=== PATIENT | male | born 1945 | race Caucasian/White ===

== ENCOUNTER → 2021-01-12 10:11 | Outpatient (CLI) | payer MEDICARE, SELFPAY ==
[2021-01-12 12:39] LABS: Anion Gap 4 (5-15); BUN 17 mg/dL (7-18); BUN/Creat Ratio 16.2 RATIO (10-20); Calcium,Total 9.7 mg/dL (8.5-10.1); Chloride 107 mmol/L (98-107); Cholesterol 131 mg/dL (200); Creatinine, Serum 1.05 mg/dL (0.70-1.30); EST Glomerular Filtration Rate 73 mL/min (>60); Est Glom Filt Rate - Afr Amer 89 mL/min (>60); Glucose 129 mg/dL (74-106); High Density Lipoprotein 45 mg/dL; Potassium 3.7 mmol/L (3.5-5.1); Sodium Level 140 mmol/L (136-145); Triglycerides 118 mg/dL; Very Low Density Lipoprotein 24 mg/dL (5-40)
== END ==
PROVIDERS: PCP Family Medicine; Referring Provider Family Medicine; Visit Provider Family Medicine
DX: E78.5 Hyperlipidemia, unspecified (principal)
CPT/HCPCS: 36415; 80048; 80061

== ENCOUNTER → 2021-01-13 12:38 | Outpatient (CLI) | payer MEDICARE, SELFPAY ==
[2021-01-13 15:41] LABS: Hemoglobin A1c 5.8 % (3.8-5.6)
== END ==
PROVIDERS: PCP Family Medicine; Referring Provider Family Medicine; Visit Provider Family Medicine
DX: R73.01 Impaired fasting glucose (principal)
CPT/HCPCS: 36415; 83036

== ENCOUNTER 2021-07-18 11:28 | Outpatient (CLI) | payer MEDICARE, SELFPAY ==
[2021-07-18 15:55] LABS: ALB/GLOB Ratio 1.1 RATIO (0.9-2.4); AST(SGOT) 16 U/L (15-37); Alanine Aminotransfer ALT/SGPT 26 U/L (16-61); Alkaline Phosphatase 65 U/L (45-117); Anion Gap 5 (5-15); BUN 26 mg/dL (7-18); BUN/Creat Ratio 20.8 RATIO (10-20); Calcium,Total 9.8 mg/dL (8.5-10.1); Chloride 106 mmol/L (98-107); Cholesterol 120 mg/dL (200); Creatinine, Serum 1.25 mg/dL (0.70-1.30); EST Glomerular Filtration Rate 60 mL/min (>60); Est Glom Filt Rate - Afr Amer 72 mL/min (>60); Globulin 3.6 g/dL (2.2-4.2); Glucose 126 mg/dL (74-106); High Density Lipoprotein 45 mg/dL; PSA,Total - Annual Screen 1.85 ng/mL (0.00-4.00); Protein, Total 7.6 g/dL (6.4-8.2); Sodium Level 138 mmol/L (136-145); Triglycerides 105 mg/dL; Very Low Density Lipoprotein 21 mg/dL (5-40)
== END 2021-07-18 23:59 | disposition home or self-care (01) ==
LOC: MFPLAB 11:31
PROVIDERS: PCP Family Medicine; Visit Provider Family Medicine
DX: E78.5 Hyperlipidemia, unspecified (principal); Z12.5 Encounter for screening for malignant neoplasm of prostate
CPT/HCPCS: 36415; 80053; 80061; 84153; G0103

== ENCOUNTER 2021-07-28 12:01 | Outpatient (CLI) | payer MEDICARE, SELFPAY ==
[2021-07-28 15:59] LABS: Hemoglobin A1c 5.9 % (3.8-5.6)
== END 2021-07-28 23:59 | disposition home or self-care (01) ==
LOC: MFPLAB 12:04
PROVIDERS: PCP Family Medicine; Referring Provider Family Medicine; Visit Provider Family Medicine
DX: R73.01 Impaired fasting glucose (principal)
CPT/HCPCS: 36415; 83036

== ENCOUNTER → 2021-09-23 | Outpatient (CLI) | payer MEDICARE, SELFPAY ==
[2021-09-23 18:14] LABS: Anion Gap 6 (5-15); BUN 13 mg/dL (7-18); BUN/Creat Ratio 12.7 RATIO (10-20); Calcium,Total 9.4 mg/dL (8.5-10.1); Chloride 107 mmol/L (98-107); Creatinine, Serum 1.02 mg/dL (0.70-1.30); EST Glomerular Filtration Rate 76 mL/min (>60); Est Glom Filt Rate - Afr Amer 91 mL/min (>60); Glucose 81 mg/dL (74-106); Potassium 3.7 mmol/L (3.5-5.1); Sodium Level 139 mmol/L (136-145)
== END | disposition home or self-care (01) ==
LOC: MFPLAB 15:55
PROVIDERS: PCP Family Medicine; Visit Provider Family Medicine
DX: I10 Essential (primary) hypertension (principal)
CPT/HCPCS: 36415; 80048

== ENCOUNTER → 2022-04-11 | Outpatient (CLI) | payer MEDICARE, SELFPAY ==
[2022-04-11 13:23] LABS: Anion Gap 10 (5-15); BUN 18 mg/dL (7-18); BUN/Creat Ratio 17.1 RATIO (10-20); Calcium,Total 9.5 mg/dL (8.5-10.1); Chloride 104 mmol/L (98-107); Cholesterol 136 mg/dL (200); Creatinine, Serum 1.05 mg/dL (0.70-1.30); EST Glomerular Filtration Rate 73 mL/min (>60); Est Glom Filt Rate - Afr Amer 88 mL/min (>60); Glucose 109 mg/dL (74-106); High Density Lipoprotein 49 mg/dL; Potassium 3.9 mmol/L (3.5-5.1); Sodium Level 143 mmol/L (136-145); Triglycerides 112 mg/dL; Very Low Density Lipoprotein 22 mg/dL (5-40)
== END | disposition home or self-care (01) ==
LOC: MFPLAB 11:10
PROVIDERS: PCP Family Medicine; Referring Provider Family Medicine; Visit Provider Family Medicine
DX: I10 Essential (primary) hypertension (principal); E78.5 Hyperlipidemia, unspecified
CPT/HCPCS: 36415; 80048; 80061

== ENCOUNTER → 2022-06-02 | Outpatient (CLI) | payer MEDICARE, SELFPAY ==
--- NOTE | 2022-06-02 12:59 | ECHOD_ITS ---
Reason For Study: Re-Evaluate post PPM Procedure This was a 2D Doppler, Color Flow transthoracic echocardiogram. Exam performed in department. Left Ventricle Normal LV size. Mild concentric left ventricular hypertrophy. Left ventricular systolic function is normal. The estimated ejection fraction is 65 %. No regional wall motion abnormalities noted. Right Ventricle Normal RV size. ICD or pacer leads identified within the right ventricle. Normal systolic function. Atria Normal left atrium. Normal right atrium. Mitral Valve Normal mitral valve. Tricuspid Valve Normal tricuspid valve. Mild (1+) tricuspid valve insufficiency. Pulmonary artery systolic pressure is 30 mmHg. Aortic Valve Trisinus/trileaflet aortic valve. Mild focal aortic valve calcification. Pulmonic Valve Normal pulmonic valve. Great Vessels Normal aortic root. The pulmonary artery is normal size. Normal inferior vena cava. Pericardium/Pleural No pericardial effusion. MMode/2D Measurements & Calculations LVIDd: 4.1 cm IVSd: 1.3 cm Ao root diam: 2.3 cm LVIDs: 3.0 cm LVPWd: 1.2 cm RVDd: 4.0 cm FS: 25.9 % LAV(MOD-bp): 34.5 ml LA A4 area: 16.2 cm2 RA A4 area: 16.5 cm2 LAV(MOD-bp) Indexed: 19.0 ml/m2 LAV(MOD-sp2): 31.6 ml LAV(MOD-sp4): 38.1 ml Time Measurements MV dec time: 0.18 sec Doppler Measurements & Calculations MV E max joby: 51.8 cm/sec Lat Peak E' Joby: 7.5 cm/sec Med Peak E' Joby: 7.8 cm/sec MV A max joby: 81.0 cm/sec E/E' lat: 6.9 E/E' med: 6.7 MV E/A: 0.64 MV V2 max: 101.0 cm/sec MV dec slope: 291.6 cm/sec2 Ao V2 max: 130.0 cm/sec MV max P.1 mmHg Ao max P.8 mmHg MV V2 mean: 49.3 cm/sec Ao V2 mean: 91.7 cm/sec MV mean P.2 mmHg Ao mean P.8 mmHg MV V2 VTI: 22.6 cm Ao V2 VTI: 30.6 cm AV (velocity ratio): 0.68 LV V1 max: 90.2 cm/sec PA V2 max: 88.6 cm/sec TR max joby: 254.8 cm/sec LV V1 max P.3 mmHg TR max P.0 mmHg LV V1 mean P.2 mmHg LV V1 mean: 71.6 cm/sec LV V1 VTI: 20.9 cm ECHO/Echo Complete Interpretation Summary Normal LV size. Mild concentric left ventricular hypertrophy. Left ventricular systolic function is normal. The estimated ejection fraction is 65 %. Pulmonary artery systolic pressure is 30 mmHg. Ordering Physician: Rei Hoover Referring Physician: Rei Hoover Performed By: Pankaj Nuñez RCS
== END | disposition home or self-care (01) ==
PROVIDERS: PCP Family Medicine; Referring Provider Nurse Practitioner Family; Visit Provider Nurse Practitioner Family
DX: I44.2 Atrioventricular block, complete (principal); I27.21 Secondary pulmonary arterial hypertension
CPT/HCPCS: 93306

== ENCOUNTER → 2023-01-26 | Outpatient (CLI) | payer MEDICARE, SELFPAY ==
[2023-01-26 12:29] LABS: AST(SGOT) 20 U/L (15-37); Alanine Aminotransfer ALT/SGPT 12 U/L (16-61); Albumin, Serum 3.8 g/dL (3.2-5.0); Alkaline Phosphatase 82 U/L (45-117); Anion Gap 3 (5-15); BUN 16 mg/dL (7-18); BUN/Creat Ratio 15.8 RATIO (10-20); Calcium,Total 9.4 mg/dL (8.5-10.1); Chloride 108 mmol/L (98-107); Cholesterol 134 mg/dL (200); Creatinine, Serum 1.01 mg/dL (0.70-1.30); EST Glomerular Filtration Rate 76 mL/min (>60); Est Glom Filt Rate - Afr Amer 92 mL/min (>60); Globulin 3.8 g/dL (2.2-4.2); Glucose 113 mg/dL (74-106); High Density Lipoprotein 52 mg/dL; Potassium 3.6 mmol/L (3.5-5.1); Protein, Total 7.6 g/dL (6.4-8.2); Sodium Level 140 mmol/L (136-145); Triglycerides 89 mg/dL; Very Low Density Lipoprotein 18 mg/dL (5-40)
== END | disposition home or self-care (01) ==
LOC: MTLAB 11:17
PROVIDERS: PCP Family Medicine; Referring Provider Family Medicine; Visit Provider Family Medicine
DX: E78.5 Hyperlipidemia, unspecified (principal)
CPT/HCPCS: 36415; 80053; 80061

== ENCOUNTER → 2023-07-18 | Outpatient (CLI) | payer MEDICARE, SELFPAY ==
[2023-07-18 18:32] LABS: Anion Gap 6 (5-15); BUN 14 mg/dL (7-18); BUN/Creat Ratio 13.5 RATIO (10-20); Calcium,Total 9.7 mg/dL (8.5-10.1); Chloride 105 mmol/L (98-107); Cholesterol 138 mg/dL (200); Creatinine, Serum 1.04 mg/dL (0.70-1.30); EST Glomerular Filtration Rate 73 mL/min (>60); Est Glom Filt Rate - Afr Amer 89 mL/min (>60); Glucose 115 mg/dL (74-106); High Density Lipoprotein 45 mg/dL; PSA,Total - Annual Screen 1.28 ng/mL (0.00-4.00); Potassium 3.8 mmol/L (3.5-5.1); Sodium Level 137 mmol/L (136-145); Triglycerides 171 mg/dL; Very Low Density Lipoprotein 34 mg/dL (5-40)
--- OUTSIDE RECORDS SUMMARY | 2023-07-18 19:11 | XMS RPT_ITS | CCD ---
Author Name Unknown Address [address] [place] [address] Organization [facility] Care Team Providers Care Pipe Recovery Specialist Name Role Phone Tavallaee, Ravindra M Unavailable Unavailable Tavallaee, Ravindra M Unavailable Unavailable Tavallaee, Ravindra M Unavailable Unavailable Tavallaee, Ravindra M Unavailable Unavailable Tavallaee, Ravindra M Unavailable Unavailable Tavallaee, Ravindra M Unavailable Unavailable Eduardo Tello MD Primary Care Provider Elaine Mcgill Unavailable [phone] [place], Dr. Elaine Candelario Attending Unav ailable [place], Dr. Elaine Candelario Primary Care Unav ailable [place], Dr. Elaine Candelario Attending Unav ailable [place], Dr. Elaine Candelario Primary Care Unav ailable [place], Dr. Elaine Candelario Attending Unav ailable [place], Dr. Elaine Candelario Primary Care Unav ailable [place], Dr. Elaine Candelario Attending Unav ailable [place], Dr. Elaine Candelario Primary Care Unav ailable [place], Dr. Elaine Candelario Attending Unav ailable [place], Dr. Elaine Candelario Primary Care Unav ailable [place], Dr. Elaine Candelario Attending Unav ailable [place], Dr. Elaine Candelario Primary Care Unav ailable [place], Dr. Elaine Candelario Attending Unav ailable [place], Dr. Elaine Candelario Primary Care Unav ailable [place], Dr. Elaine Candelario Attending Unav ailable [place], Dr. Elaine Candelario Primary Care Unav ailable [place], Dr. Elaine Candelario Attending Unav ailable [place], Dr. Elaine Candelario Primary Care Unav ailable [place], Dr. Elaine Candelario Attending Unav ailable [place], Dr. Elaine Candelario Primary Care Unav ailable [place], Dr. Elaine Candelario Primary Care Unav ailable [place], Dr. Elaine Candelario Attending Unav ailable [place], Dr. Elaine Candelario Attending Unav ailable [place], Dr. Elaine Candelario Primary Care Unav ailable [place], Dr. Elaine Candelario Attending Unav ailable [place], Dr. Elaine Candelario Primary Care Unav ailable [place], Dr. Elaine Candelario Attending Unav ailable [place], Dr. Elaine Candelario Primary Care Unav ailable [place], Dr. Elaine Candelario Primary Care Unav ailable [place], Dr. Elaine Candelario Attending Unav ailable [place], Dr. Elaine Candelario Attending Unav ailable [place], Dr. Elaine Candelario Primary Care Unav ailable [place], Dr. Elaine Candelario Attending Unav ailable [place], Dr. Elaine Candelario Primary Care Unav ailable [place], Dr. Elaine Candelario Attending Unav ailable [place], Dr. Elaine Candelario Primary Care Unav ailable [place], Dr. Elaine Candelario Attending Unav ailable [place], Dr. Elaine Candelario Primary Care Unav ailable [place], Dr. Elaine Candelario Attending Unav ailable [place], Dr. Elaine Candelario Primary Care Unav ailable [place], Dr. Elaine Candelario Attending Unav ailable [place], Dr. Elaine Candelario Primary Care Unav ailable [place], Dr. Elaine Candelario Attending Unav ailable [place], Dr. Elaine Candelario Primary Care Unav ailable Eduardo Tello MD Primary Care Provider Eduardo Tello MD Primary Care Provider [phone] [place] NATH, Elaine Unavailable ELAINE MCGILL Attending Unavailable EDUARDO TELLO Primary Care Unavailable ARTEM, ELAINE Attending Unavailable ELAINE MCGILL Referring Unavailable EDUARDO TELLO Primary Care Unavailable EDUARDO TELLO Primary Care Unavailable ARTEM, ELAINE Attending Unavailable Medications Current Medications Medication Drug Class(es) Dates Sig (Normalized) Sig (Original) carbidopa 25 mg / levodopa 100 mg extended release oral tablet (13 sources) Aromatic Amino Acid Decarboxylation Inhibitor, Aromatic Amino Acid Start: 11-03-2022 End: 01-04-2024 take 2 tablets by mouth three times daily carbidopa-levodo pa CR (SINEMET CR) 25-100 mg per tablet Take 2 tablets by mouth three times daily. 540 tablet 3 01/04/2023 01/04/2024 Active Completed/Discontinued Medications Medication Drug Class(es) Dates Sig (Normalized) Sig (Original) lisinopril 40 mg oral tablet (7 sources) Angiotensin Converting Enzyme Inhibitor lisinopril (ZESTRIL, PRINIVIL) 40 mg tablet Take 20 mg by mouth once daily. 20 mg twice daily 0 Active Problems Problem Classification Problem Date Documented Date Episodic/Chronic Essential hypertension (7 sources) Hypertensive disorder; Translations: [Essential (primary) hypertension] Onset: 02-01-2018 02-01-2018 Chronic Other connective tissue disease (13 sources) Fine motor impairment ; Translations: [Other specified conditions influencing health status] Episodic Other connective tissue disease (1 source) Other symptoms and signs involving the nervous system; Translations: [Other symptoms and signs involving the nervous system] Onset: 07-12-2022 Episodic Other connective tissue disease (1 source) Other symptoms and signs involving the musculoskeletal system; Translations: [Oth symptoms and signs involving the musculoskeletal system] Onset: 07-12-2022 Episodic Other hereditary and degenerative nervous system conditions (20 sources) Resting tremor; Translations: [Abnormal involuntary movements] Chronic Other hereditary and degenerative nervous system conditions (1 source) Other specified forms of tremor; Translations: [Other specified forms of tremor] Onset: 07-12-2022 Chronic Other nervous system disorders (20 sources) Abnormal gait; Translations: [Unsteadiness on feet] Episodic Other nervous system disorders (1 source) Other abnormalities of gait and mobility; Translations: [Other abnormalities of gait and mobility] Onset: 07-10-2022 Episodic Parkinson`s disease (20 sources) Parkinson's disease; Translations: [Parkinson's disease] Onset: 03-12-2015 Chronic Residual codes; unclassified (20 sources) Other general symptoms and signs; Translations: [Decreased functional activity tolerance] Onset: 07-12-2022 Episodic Results Test Name Value Interpretation Reference Range Facil ity Vital Signs Date Time Vital Sign Value Performing Clinician Faci lity 07-09-2023 11:24-0500 Body height 170.2 cm Elaine Mcgill MD Work Phone: [facility] 07-09-2023 11:24-0500 Body weight 77.7 kg Elaine Mcgill MD Work Phone: [facility] 07-09-2023 11:24-0500 SaO2% (BldA) [Mass fraction] 97 % Elaine Mcgill MD Work Phone: [facility] 01-04-2023 07:33-0400 Respiratory rate 16 /min Elaine Mcgill MD Work Phone: [facility] 01-04-2023 07:28-0400 Body weight 72.58 kg Elaine Mcgill MD Work Phone: [facility] 01-04-2023 07:28-0400 SaO2% (BldA) [Mass fraction] 98 % Elaine Mcgill MD Work Phone: [facility] 02-27-2022 11:18-0400 Body height 170.2 cm Elaine Mcgill MD Work Phone: [facility] 02-27-2022 11:18-0400 Body weight 72.67 kg Elaine Mcgill MD Work Phone: [facility] 02-27-2022 11:18-0400 Diastolic blood pressure 96 mm[Hg] Elaine Mcgill MD Work Phone: [facility] 02-27-2022 11:18-0400 Heart rate 80 /min Elaine Mcgill MD Work Phone: [facility] 02-27-2022 11:18-0400 SaO2% (BldA) [Mass fraction] 98 % Elaine Mcgill MD Work Phone: [facility] 02-27-2022 11:18-0400 Systolic blood pressure 184 mm[Hg] Elaine Mcgill MD Work Phone: [facility] Encounters Encounter Date Encounter Type Care Provider Facility Start: 07-09-2023 End: 07-09-2023 ambulatory ELAINE MCGILL Facility:[facility] Start: 07-09-2023 End: 07-09-2023 Office outpatient visit 15 minutes Elaine Mcgill MD Work Phone: Neurology Plan of Treatment Date Care Activity Detail Author Start: 07-14-2023 DIABETES SCREEN DIABETES SCREEN [facility] Start: 07-14-2023 Diabetes Screening Diabetes Screening [facility] Start: 05-14-2023 Advance Directive Discussion Advance Directive Discussion [facility] Start: 05-14-2023 Depression Assessment Depression Assessment [facility] Start: 01-12-2023 Covid-19 Vaccine () Covid-19 Vaccine () [facility] Start: 01-12-2023 Influenza vaccination [facility] Start: 07-12-2022 OTRECHEADT, Provider: Jess Mckeon, Status: Pen, Time: 11:15 AM OTRECHEADT, Provider: Jess Mckeon, Status: Pen, Time: 11:15 AM [facility] Work Phone: Start: 07-12-2022 PTRECHADUL, Provider: Meera Lizarraga, Status: Pen, Time: 10:45 AM PTRECHADUL, Provider: Meera Lizarraga, Status: Pen, Time: 10:45 AM [facility] Work Phone: Start: 07-10-2022 OTFUADULT4, Provider: Jess Mckeon, Status: Pen, Time: 11:15 AM OTFUADULT4, Provider: Jess Mckeon, Status: Pen, Time: 11:15 AM [facility] Work Phone: Start: 07-10-2022 PTFUADULT4, Provider: Meera Lizarraga, Status: Pen, Time: 10:30 AM PTFUADULT4, Provider: Meera Lizarraga, Status: Pen, Time: 10:30 AM [facility] Work Phone: Start: 07-05-2022 OTFUADULT4, Provider: Jess Mckeon, Status: Pen, Time: 11:15 AM OTFUADULT4, Provider: Jess Mckeon, Status: Pen, Time: 11:15 AM [facility] Work Phone: Start: 07-05-2022 PTFUADULT4, Provider: Meera Lizarraga, Status: Pen, Time: 10:30 AM PTFUADULT4, Provider: Meera Lizarraga, Status: Pen, Time: 10:30 AM [facility] Work Phone: Start: 07-03-2022 OTFUADULT4, Provider: Jess Mckeon, Status: Pen, Time: 11:15 AM OTFUADULT4, Provider: Jess Mckeon, Status: Pen, Time: 11:15 AM [facility] Work Phone: Start: 07-03-2022 PTFUADULT4, Provider: Meera Lizarraga, Status: Pen, Time: 10:30 AM PTFUADULT4, Provider: Meera Lizarraga, Status: Pen, Time: 10:30 AM [facility] Work Phone: Start: 07-03-2022 PTRECHADUL, Provider: Meera Lizarraga, Status: Pen, Time: 10:30 AM PTRECHADUL, Provider: Meera Lizarraga, Status: Pen, Time: 10:30 AM [facility] Work Phone: Start: 06-28-2022 OTFUADULT4, Provider: Jess Mckeon, Status: Pen, Time: 11:30 AM OTFUADULT4, Provider: Jess Mckeon, Status: Pen, Time: 11:30 AM [facility] Work Phone: Start: 06-28-2022 PTFUADULT4, Provider: Meera Lizarraga, Status: Pen, Time: 10:45 AM PTFUADULT4, Provider: Meera Lizarraga, Status: Pen, Time: 10:45 AM [facility] Work Phone: Start: 06-26-2022 OTFUADULT4, Provider: Jess Mckeon, Status: Pen, Time: 11:15 AM OTFUADULT4, Provider: Jess Mckeon, Status: Pen, Time: 11:15 AM [facility] Work Phone: Start: 06-26-2022 PTFUADULT4, Provider: Meera Lizarraga, Status: Pen, Time: 10:30 AM PTFUADULT4, Provider: Meera Lizarraga, Status: Pen, Time: 10:30 AM [facility] Work Phone: Start: 06-21-2022 OTFUADULT4, Provider: Jess Mckeon, Status: Pen, Time: 11:30 AM OTFUADULT4, Provider: Jess Mckeon, Status: Pen, Time: 11:30 AM [facility] Work Phone: Start: 06-21-2022 PTFUADULT4, Provider: Meera Lizarraga, Status: Pen, Time: 10:45 AM PTFUADULT4, Provider: Meera Lizarraga, Status: Pen, Time: 10:45 AM [facility] Work Phone: Start: 06-19-2022 OTFUADULT4, Provider: Jess Mckeon, Status: Pen, Time: 11:15 AM OTFUADULT4, Provider: Jess Mckeon, Status: Pen, Time: 11:15 AM [facility] Work Phone: Start: 06-19-2022 PTFUADULT4, Provider: Meera Lizarraga, Status: Pen, Time: 10:30 AM PTFUADULT4, Provider: Meera Lizarraga, Status: Pen, Time: 10:30 AM [facility] Work Phone: Start: 06-14-2022 OTFUADULT4, Provider: Faustina Arellano, Status: Pen, Time: 11:15 AM OTFUADULT4, Provider: Faustina Arellano, Status: Pen, Time: 11:15 AM [facility] Work Phone: Start: 06-14-2022 OTFUADULT4, Provider: Jess Mckeon, Status: Pen, Time: 11:15 AM OTFUADULT4, Provider: Jess Mckeon, Status: Pen, Time: 11:15 AM [facility] Work Phone: Start: 06-14-2022 PTFUADULT4, Provider: Meera Lizarraga, Status: Pen, Time: 10:30 AM PTFUADULT4, Provider: Meera Lizarraga, Status: Pen, Time: 10:30 AM [facility] Work Phone: Start: 06-12-2022 PTFUADULT4, Provider: Meera Lizarraga, Status: Pen, Time: 11:30 AM PTFUADULT4, Provider: Meera Lizarraga, Status: Pen, Time: 11:30 [facility] Start: 06-12-2022 OTFUADULT4, Provider: Jess Mckeon, Status: Pen, Time: 10:45 AM OTFUADULT4, Provider: Jess Mckeon, Status: Pen, Time: 10:45 AM [facility] Start: 06-07-2022 OTFUADULT4, Provider: Jess Mckeon, Status: Pen, Time: 11:15 AM OTFUADULT4, Provider: Jess Mckeon, Status: Pen, Time: 11:15 AM [facility] Work Phone: Start: 06-07-2022 PTFUADULT4, Provider: Meera Lizarraga, Status: Pen, Time: 10:30 AM PTFUADULT4, Provider: Meera Lizarraga, Status: Pen, Time: 10:30 AM [facility] Start: 06-05-2022 PTFUADULT4, Provider: Meera Lizarraga, Status: Pen, Time: 11:30 AM PTFUADULT4, Provider: Meera Lizarraga, Status: Pen, Time: 11:30 AM [facility] Work Phone: Start: 06-05-2022 OTFUADULT4, Provider: Jess Mckeon, Status: Pen, Time: 10:45 AM OTFUADULT4, Provider: Jess Mckeon, Status: Pen, Time: 10:45 AM [facility] Work Phone: Start: 05-31-2022 PTFUADULT4, Provider: Meera Lizarraga, Status: Pen, Time: 10:15 AM PTFUADULT4, Provider: Meera Lizarraga, Status: Pen, Time: 10:15 AM [facility] Work Phone: Start: 05-31-2022 OTFUADULT4, Provider: Jess Mckeon, Status: Pen, Time: 9:30 AM OTFUADULT4, Provider: Jess Mckeon, Status: Pen, Time: 9:30 AM [facility] Work Phone: Start: 05-29-2022 PTFUADULT4, Provider: Meera Lizarraga, Status: Pen, Time: 11:30 AM PTFUADULT4, Provider: Meera Lizarraga, Status: Pen, Time: 11:30 AM [facility] Work Phone: Start: 05-29-2022 OTFUADULT4, Provider: Jess Mckeon, Status: Pen, Time: 10:45 AM OTFUADULT4, Provider: Jess Mckeon, Status: Pen, Time: 10:45 AM [facility] Work Phone: Start: 05-23-2022 OTRECHEADT, Provider: Jess Mckeon, Status: Pen, Time: 10:45 AM OTRECHEADT, Provider: Jess Mckeon, Status: Pen, Time: 10:45 AM [facility] Work Phone: Start: 05-23-2022 PTRECHDALE, Provider: Meera Lizarraga, Status: Pen, Time: 10:00 AM PTRECHDALE, Provider: Meera Lizarraga, Status: Pen, Time: 10:00 AM [facility] Work Phone: Start: 05-14-2022 ADVANCE DIRECTIVE DISCUSSION ADVANCE DIRECTIVE DISCUSSION [facility] Start: 05-14-2022 DEPRESSION ASSESSMENT DEPRESSION ASSESSMENT [facility] Start: 04-20-2022 OTRECTYRONE, Provider: Jess Mckeon, Status: Pen, Time: 10:30 AM OTRECTYRONE, Provider: Jess Mckeon, Status: Pen, Time: 10:30 AM [facility] Work Phone: Start: 04-17-2022 PTFUADULT4, Provider: Meera Lizarraga, Status: Pen, Time: 10:00 AM PTFUADULT4, Provider: Meera Lizarraga, Status: Pen, Time: 10:00 AM [facility] Work Phone: Start: 04-14-2022 PTFUADULT4, Provider: Meera Lizarraga, Status: Pen, Time: 10:00 AM PTFUADULT4, Provider: Meera Lizarraga, Status: Pen, Time: 10:00 AM [facility] Work Phone: Start: 04-12-2022 PTFUADULT4, Provider: Mary Navarro, Status: Pen, Time: 10:00 AM PTFUADULT4, Provider: Mary Navarro, Status: Pen, Time: 10:00 AM [facility] Work Phone: Start: 04-04-2022 PTFUADULT4, Provider: Mary Navarro, Status: Pen, Time: 4:15 PM PTFUADULT4, Provider: Mary Navarro, Status: Pen, Time: 4:15 PM [facility] Work Phone: Start: 03-28-2022 PTPAMELAL, Provider: Meera Lizarraga, Status: Pen, Time: 9:30 AM PTEVERIKA, Provider: Meera Lizarraga, Status: Jaguar, Time: 9:30 AM [facility] Work Phone: Start: 01-12-2022 Influenza vaccination INFLUENZA (#1) [facility] Start: 07-06-2021 COVID-19 VACCINE (2 - Pfizer series) COVID-19 VACCINE (2 - Pfizer series) [facility] Start: 06-01-2021 COVID-19 VACCINE (2 - Pfizer series) COVID-19 VACCINE (2 - Pfizer series) [facility] Start: 05-14-2021 ADVANCE DIRECTIVE DISCUSSION ADVANCE DIRECTIVE DISCUSSION [facility] Start: 05-14-2021 DEPRESSION ASSESSMENT DEPRESSION ASSESSMENT [facility] Start: 2010 Pneumococcal Vaccine: 65+ (1 of 1 - PCV) Pneumococcal Vaccine: 65+ (1 of 1 - PCV) [facility] Start: 2010 PNEUMOCOCCAL: 65+ (1 - PCV) PNEUMOCOCCAL: 65+ (1 - PCV) [facility] Start: 2005 RSV Vaccine (1 - 1-dose 60+ series) RSV Vaccine (1 - 1-dose 60+ series) [facility] Start: 09-13-1995 SHINGRIX VACCINE (1 of 2) SHINGRIX VACCINE (1 of 2) [facility] Start: 1964 Urine microalbumin profile [facility] Start: 09-13-1963 ANNUAL PCP TEAM CHRONIC DISEASE VISIT ANNUAL PCP TEAM CHRONIC DISEASE VISIT [facility] Start: 09-13-1963 BP CONTROLLED (<130/80) BP CONTROLLED (<130/80) [facility] Start: 09-13-1963 HEPATITIS C SCREENING HEPATITIS C SCREENING [facility] Start: 09-13-1963 Hepatitis C screening Hepatitis C Screening [facility] Payers Date Payer Category Payer Medicare HU[employer]NA MEDICARE HU[employer]NA MEDICARE PPO [id number] 2018-Present [phone] [place] [address] PPO [id number] 2018 Private Health Insurance [id number] 2016 Private Health Insurance 1945 Unknown [id number] [id number]. 2.1068 1945 Unknown [id number] 2.16.840.1.286775.3.579. 2.1068 1945 Unknown [id number] 2.16.840.1.316336.3.579. 2.1068 1945 Unknown [id number] 2.16.840.1.878629.3.579. 2.1068 1945 Unknown [id number] 2.16.840.1.976418.3.579. 2.1068 1945 Unknown [id number] 2.16.840.1.104313.3.579. 2.1068 1945 Unknown [id number] 2.16.840.1.945931.3.579. 2.1068 1945 Unknown [id number] 2.16.840.1.801852.3.579. 2.1068 1945 Unknown [id number] 2.16.840.1.139546.3.579. 2.1068 1945 Unknown [id number] 2.16.840.1.781176.3.579. 2.1068 1945 Unknown [id number] 2.16.840.1.111670.3.579. 2.1068 1945 Unknown [id number] 2.16.840.1.149846.3.579. 2.1068 1945 Unknown [id number] 2.16.840.1.405975.3.579. 2.1068 1945 Unknown [id number] 2.16.840.1.599024.3.579. 2.1068 1945 Unknown [id number] 2.16.840.1.172652.3.579. 2.1068 1945 Unknown [id number] 2.16.840.1.273605.3.579. 2.1068 1945 Unknown [id number] 2.16.840.1.411209.3.579. 2.9 1945 Unknown [id number] 2.16.840.1.624328.3.579. 2.1068 1945 Unknown [id number] 2.16.840.1.385430.3.579. 2.1068 1945 Unknown [id number] 2.16.840.1.191414.3.579. 2.1068 1945 Unknown [id number] 2.16.840.1.455840.3.579. 2.1068 1945 Unknown [id number] 2.16.840.1.331539.3.579. 2.1068 Unknown [employer] GOLD CHOICE Social History Date Type Detail Facility Start: [facility]27[facility]2022 [facility] History of tobacco use Current smoker [facility] Start: 02-27-2022 Tobacco use and exposure Smoke less tobacco non-user [facility] Start: 02-27-2022 End: 07-09-2023 Alcohol intake Current drinker of alcohol (finding) [facility] Start: 10-28-2020 [facility]: 1945 Sex Assigned At Male [facility] Start: 02-17-2022 End: 02-27-2022 Exposure to SARS-CoV-2 (event) Not sure [facility] Start: 10-04-2022 End: 01-04-2023 History of Social function [facility] Start: 10-04-2022 End: 01-04-2023 Tobacco use panel [facility] Adult Depression Screening Assessment 2 [facility] Start: 09-13-2018 Gender identity Identifies as male gender (finding) [facility] Clinical Notes 02-27-2022 to 07-11-2023 Elaine Mcgill MD - 07/11/2023 3:24 PM ESTPatient InstructionsElaine Mcgill MD - 01/04/2023 8:18 AM EDTPatient InstructionsTelephone Encounter - Jess NicholasRHONDA - 11/03/2022 1:17 PM EDT Note Date & Type Note Facility 07-11-2023 Note HNO ID: [id number] Author: ELAINE MCGILL MD Service: ? Author Type: Physician Type: Progress Notes Filed: 07/11/2023 15:27 Note Text: [facility] - FOLLOW UP EVALUATION No referring provider defined for this encounter. Eduardo Tello MD [address] [facility] [address] [facility] [id number] I had the pleasure of seeing Mr. Aguilar for follow up today. He is a 77 year old right-handed male with a history of PD since 2014. He is seen with his . Subjective Previous Plan-01/04/2023 Visit: Continue your medications as you have been taking them. We are not making any changes today. If you feel you are not tolerating them or your symptoms are changing before your next appointment, please feel free to send me a Visual[employer]ly message or contact the office - Please consider physical therapy in the fall. Let me know and I will write an order for it - - Interval History: Tires easily. SOB going up basement steps. PCP aware. Sleeps well. Used eight section blower. Riding exercise bike every 2-3 days. Trouble with knee so scaled back. Parkinson's Medication Schedule - as of the start of the visit: Medications 9 4 Bed- 11p Sinemet CR 25/100 2 2 2 Parkinson's Motor Complications Medication benefit onset: unclear Medication duration: unclear Wearing off: no Painful off-state dystonia: no Dyskinesia: no Prior Anti-Parkinson Therapies Carbidopa/Levodopa Carbidopa/Levodopa CR Carbidopa/Levodopa ER (Rytary) (Comment: responded well but too expensive) Questionnaires In addition, the following areas that may be affected by abnormal involuntary movements were evaluated: Daily activities Difficulties with eating: slighT Difficulties in dressing: slight Difficulties with hygiene activities: slight Difficulties with handwriting: slight Difficulties with doing hobbies and other activities: mild Difficulties turning in bed: slight Difficulties getting out of bed, car or chair: slight Tremors/Gait/Balance Shaking or tremors: slight Walking and balance problems: slight Number of falls in the Last Month: 0 Gait freezing: none Autonomic/Pain Lightheadeness on standing: none Urinary problems: slight Constipation problems: slight Pain and other sensations: slight Speech/Swallowing Speech problems: slight Drooling: slight Chewing and swallowing problems: none Sleep/Fatigue Sleep problems: none Daytime sleepiness: slight Fatigue: slight Mood/Behavior Depression: usually representing mild (5-9) depression. Anxiety: usually representing no significant (0-4) anxiety. Finally, the following table shows the patient's overall global physical and mental health using the PROMIS scale: PROMIS-10 Flowsheet Row Office Visit from 07/09/2023 in Neurology Office Visit from 01/04/2023 in Neurology Global Physical Health T Score 50.8 44.9 Global Mental Health T Score 48.3 45.8 0-10 Standard Pain Scale 5 4 *PROMIS-10 scoring scale: mean = 50, over 50 is above average, under 50 is below average ALLERGIES No Known Allergies Current Outpatient Medications Medication Sig carbidopa-levodopa CR (SINEMET CR) 25-100 mg per tablet Take 2 tablets by mouth three times daily. (Patient taking differently: Take 2 tablets by mouth three times a day. 2 tab at 9am, 3-4pm and 10-11) spironolactone (ALDACTONE) 25 mg tablet lisinopril (ZESTRIL, PRINIVIL) 40 mg tablet Take 20 mg by mouth once daily. 20 mg twice daily simvastatin (ZOCOR) 40 mg tablet Take 40 mg by mouth daily at bedtime. UBIDECARENONE (COENZYME Q10) 100 MG cap Take 100 mg by mouth once daily. No current facility-administered medications for this visit. Objective Vital Signs: Ht 170.2 cm (5' 7 ) Wt 77.7 kg (171 lb 4.8 oz) SpO2 97% BMI 26.83 kg/m? Orthostatic Vitals: Sitting: BP 157/88 Pulse 79 Standing: BP 143/75 Pulse 71 Weight: 77.7 kg (171 lb 4.8 oz) Height: 170.2 cm (5' 7 ) No LMP for male patient. Body mass index is 26.83 kg/m?. General Physical Examination: General: Awake, alert, interactive, no acute distress, good nutritional status, normal development, well-kept General Neurological Examination: Neurological Exam Mental Status Awake and alert. Language is fluent with no aphasia. Movement Disorders Scales Performed: MDS-UPDRS Motor subscale condition of exam Medication Off/On/Naiive ON Time of UPDRS 1159 Time of Last Medication 0900 Last Medication Taken 2 tabs Sinemet CR 25/100 DBS Right N/A DBS Left N/A MDS-UPDRS Motor subscale scores Speech 1-Slight. Loss of modulation, diction or volume, but still all words easy to understand. Facial Expression 1-Slight. Minimal masked facies manifested only by decreased frequency of blinking. Rigidity Neck 0-Normal. No rigidity. Rigidity Right Upper Extremity 0-Normal. No rigidity. Rigidity Left Upper Extremity 0-Normal. No rigidity. Rigidity Right Lower Extremity 0-Normal. No rigidity. Rigidity Left Lower E (more content not included)... [facility] 07-11-2023 History of Presen t illness Narrative [facility] - FOLLOW UP EVALUATION No referring provider defined for this encounter. Eduardo Tello MD [address] [facility] [address] [place] [phone] I had the pleasure of seeing Mr. Aguilar for follow up today. He is a 77 year old right-handed male with a history of PD since 2015. He is seen with his . Subjective Previous Plan-01/04/2023 Visit: Continue your medications as you have been taking them. We are not making any changes today. If you feel you are not tolerating them or your symptoms are changing before your next appointment, please feel free to send me a Cellyt message or contact the office - Please consider physical therapy in the fall. Let me know and I will write an order for it - - Interval History: Tires easily. SOB going up basement steps. PCP aware. Sleeps well. Used eight section blower. Riding exercise bike every 2-3 days. Trouble with knee so scaled back. Parkinson's Medication Schedule - as of the start of the visit: Medications 9 4 Bed- 11p Sinemet CR 25/100 2 2 2 Parkinson's Motor Complications Medication benefit onset: unclear Medication duration: unclear Wearing off: no Painful off-state dystonia: no Dyskinesia: no Prior Anti-Parkinson Therapies Carbidopa/Levodopa Carbidopa/Levodopa CR Carbidopa/Levodopa ER (Rytary) (Comment: responded well but too expensive) Questionnaires In addition, the following areas that may be affected by abnormal involuntary movements were evaluated: Daily activities Difficulties with eating: slighT Difficulties in dressing: slight Difficulties with hygiene activities: slight Difficulties with handwriting: slight Difficulties with doing hobbies and other activities: mild Difficulties turning in bed: slight Difficulties getting out of bed, car or chair: slight Tremors/Gait/Balance Shaking or tremors: slight Walking and balance problems: slight Number of falls in the Last Month: 0 Gait freezing: none Autonomic/Pain Lightheadeness on standing: none Urinary problems: slight Constipation problems: slight Pain and other sensations: slight Speech/Swallowing Speech problems: slight Drooling: slight Chewing and swallowing problems: none Sleep/Fatigue Sleep problems: none Daytime sleepiness: slight Fatigue: slight Mood/Behavior Depression: usually representing mild (5-9) depression. Anxiety: usually representing no significant (0-4) anxiety. Finally, the following table shows the patient's overall global physical and mental health using the PROMIS scale: PROMIS-10 Flowsheet Row Office Visit from 07/09/2023 in Neurology Office Visit from 01/04/2023 in Neurology Global Physical Health T Score 50.8 44.9 Global Mental Health T Score 48.3 45.8 0-10 Standard Pain Scale 5 4 *PROMIS-10 scoring scale: mean = 50, over 50 is above average, under 50 is below average ALLERGIES No Known Allergies Current Outpatient Medications Medication Sig carbidopa-levodopa CR (SINEMET CR) 25-100 mg per tablet Take 2 tablets by mouth three times daily. (Patient taking differently: Take 2 tablets by mouth three times a day. 2 tab at 9am, 3-4pm and 10-11) spironolactone (ALDACTONE) 25 mg tablet lisinopril (ZESTRIL, PRINIVIL) 40 mg tablet Take 20 mg by mouth once daily. 20 mg twice daily simvastatin (ZOCOR) 40 mg tablet Take 40 mg by mouth daily at bedtime. UBIDECARENONE (COENZYME Q10) 100 MG cap Take 100 mg by mouth once daily. No current facility-administered medications for this visit. Objective Vital Signs: Ht 170.2 cm (5' 7 ) Wt 77.7 kg (171 lb 4.8 oz) SpO2 97% BMI 26.83 kg/m Orthostatic Vitals: Sitting: BP 157/88 Pulse 79 Standing: BP 143/75 Pulse 71 Weight: 77.7 kg (171 lb 4.8 oz) Height: 170.2 cm (5' 7 ) No LMP for male patient. Body mass index is 26.83 kg/m . General Physical Examination: General: Awake, alert, interactive, no acute distress, good nutritional status, normal development, well-kept General Neurological Examination: Neurological Exam Mental Status Awake and alert. Language is fluent with no aphasia. Movement Disorders Scales Performed: MDS-UPDRS Motor subscale condition of exam Medication Off/On/Naiive ON Time of UPDRS 1159 Time of Last Medication 0900 Last Medication Taken 2 tabs Sinemet CR 25/100 DBS Right N/A DBS Left N/A MDS-UPDRS Motor subscale scores Speech 1-Slight. Loss of modulation, diction or volume, but still all words easy to understand. Facial Expression 1-Slight. Minimal masked facies manifested only by decreased frequency of blinking. Rigidity Neck 0-Normal. No rigidity. Rigidity Right Upper Extremity 0-Normal. No rigidity. Rigidity Left Upper Extremity 0-Normal. No rigidity. Rigidity Right Lower Extremity 0-Normal. No rigidity. Rigidity Left Lower Extremity 0-Normal. No rigidity. Finger Taps Right 1-Slight. a) the regular rhythm is broken with one or two interruptions or hesitations of the tapping movement, b) slight slowing, c) the amplitude decrements near the end of the 10 taps. Finger Taps Left 1-Slight. a) the regular rhythm is broken with one or two interruptions or hesitations of the tapping movement, b) slight slowing, c) the amplitude decrements near the end of the 10 taps. Hand Movements Right 0-Normal. No problem. Hand Movements Left 0-Normal. No problem. Arm Movements Right 0-Normal. No problems. Arm Movements Left 1-Slight. a) the regular rhythm is broken with one or two interruptions or hesitations of the movement, b) slight slowing, c) the amplitude decrements near the end of the sequence. Toe Taps Right 0-Normal. No problem. Toe Taps Left 1-Slight. a) the regular rhythm is broken with one or two interruptions or hesitations of the tapping movement, b) slight slowing, c) the amplitude decrements near the end of the ten taps. Leg Agility Right 0-Normal. No problems. Leg Agility Left 1-Slight. a) the regular rhythm is broken with one or two interruptions or hesitations of the movement, b) slight slowing, c) the amplitude decrements near the end of the task. Arise From Chair 0-Normal. No problems. Able to arise quickly without hesitation. Gait 1-Slight. Independent walking with minor gait impairment. Gait Freezing 0-Normal. No freezing. Posture Stability 0-Normal. No problems: recovers with one or two steps. (deferred) Posture 1-Slight. Not quite erect, but posture could be normal for older person. Body Bradykinesia 2-Mild. Mild global slowness and poverty of spontaneous movements. Postural Tremor Hand Right 0-Normal. No tremor. Postural Tremor Hand Left 0-Normal. No tremor. Kinetic Tremor Right 0-Normal. No tremor. Kinetic Tremor Left 0-Normal. No tremor. Rest Tremor Amplitude Right Upper Extremity 2-Mild. > 1 cm but < 3 cm in maximal amplitude. Rest Tremor Amplitude Left Upper Extremity 2-Mild. > 1 cm but < 3 cm in maximal amplitude. Rest Tremor Amplitude Right Lower Extremity 0-Normal. No tremor. Rest Tremor Amplitude Left Lower Extremity 0-Normal. No tremor. Rest Tremor Amplitude Lip/Jaw 0-Normal. No tremor. Rest Tremor Constancy 4-Severe. Tremor at rest is present > 75% of the entire examination period. MDS-UPDRS Motor subscale totals Left Total 6 Right Total 3 Midline Total 6 Tremor Total / 10 8 PIGD Total / 3 1 Overall Total 19 % Change Compared to Last Filed Total Assessment and Plan: Assessment Mr. Aguilar is a right-handed 77 year old year old male with history significant for HTN, with likely early Parkinson's disease. Classic left hand resting and postural tremor. Subtle rigidity and bradykinesia on the left side. Anosmia and RBD. All consistent with Parkinson's disease and motor symptoms significantly improved with initiation of low dose Sinemet. The following are the current problems noted and addressed during this visit: Parkinson's disease without dyskinesia or fluctuating manifestations (hcc) (primary encounter diagnosis) Plan 07/09/2023 Visit: Continue your medications as you have been taking them. We are not making any changes today. If you feel you are not tolerating them or your symptoms are changing before your next appointment, please feel free to send me a Visual[employer] message or contact the office - Increase exercise - Updated Movement Disorders Medication Schedule: Medications 9 4 Bed- 11p Sinemet CR 25/100 2 2 2 Return at or around: 01/07/24 Medical Decision Making: Problems: Low: Stable chronic illness Risk: Moderate: Drug management Medical Decision Making Level: 3 - Low Thank you for allowing me to be part of the clinical care of this patient! I look forward to continued participation in the patient s care with you. Please do not hesitate to call with any questions. Sincerely, Elaine Mcgill MD documented in this encounter [facility] 07-09-2023 Instructions Elaine Mcgill MD - 07/09/2023 12:05 PM EST It was a pleasure to see you today. We addressed the following diagnoses: Parkinson's disease without dyskinesia or fluctuating manifestations (hcc) (primary encounter diagnosis) My recommendations are as follows: Continue your medications as you have been taking them. We are not making any changes today. If you feel you are not tolerating them or your symptoms are changing before your next appointment, please feel free to send me a Visual[employer] message or contact the office Movement Disorders Medication Schedule: Medications 9 4 Bed- 11p Sinemet CR 25/100 2 2 2 Return in about 6 months (around 01/07/2024). If there are any concerns before your next visit, please call or you can send a message through [employer]. You can also now schedule and select appointments through [employer]. Elaine Mcgill MD documented in this encounter [facility] 01-04-2023 Note HNO ID: [id number] Author: Elaine Mcgill MD Service: ? Author Type: Physician Type: Progress Notes Filed: 01/04/2023 8:20 AM Note Text: [facility] - FOLLOW UP EVALUATION Eduardo Tello MD [address] [place] [address] [address] [facility] [id number] I had the pleasure of seeing Mr. Aguilar for follow up today. He is a 77 year old right-handed male with a history of PD since 2014. He is seen with his . Subjective Previous Plan-10/04/2022 Visit: stop Sinemet and start Rytary instead physical therapy Interval History: Tolerating Sinemet CR much better. Tremor and balance are better. No wearing off. Happy with it. Rytary did help a lot but it was too expensive. Parkinson's Medication Schedule - as of the start of the visit: Medications 8-9 3-4p Bed- 11p Sinemet CR 25/100 2 2 2 Parkinson's Motor Complications Medication benefit onset: unclear Medication duration: unclear Wearing off: no Painful off-state dystonia: no Dyskinesia: no Prior Anti-Parkinson Therapies Carbidopa/Levodopa Carbidopa/Levodopa ER (Rytary) (Comment: responded well but too expensive) Questionnaires In addition, the following areas that may be affected by abnormal involuntary movements were evaluated: Daily activities Difficulties with eating: Yes (slight) Difficulties in dressing: Yes (slight) Difficulties with hygiene activities: Yes (slight) Difficulties with handwriting: Yes (slight) Difficulties with doing hobbies and other activities: Yes (slight) Difficulties turning in bed: 0 (none) Difficulties getting out of bed, car or chair: Yes (slight) Tremors/Gait/Balance Shaking or tremors: Yes (slight) Walking and balance problems: Yes (slight) Number of falls in the Last Month: 0 Gait freezin (none) Autonomic/Pain Lightheadeness on standin (none) Urinary problems: 0 (none) Constipation problems: Yes (slight) Pain and other sensations: 0 (none) Speech/Swallowing Speech problems: 0 (none) Drooling: Yes (slight) Chewing and swallowing problems: 0 (none) Sleep/Fatigue Sleep problems: 0 (none) Daytime sleepiness: Yes (slight) Fatigue: Yes (slight) Mood/Behavior Depression: PHQ-9 Score: 6 usually representing mild (5-9) depression. Anxiety: ANNETTE-7 Total Score: 3 usually representing no significant (0-4) anxiety. Finally, the following table shows the patient's overall global physical and mental health using the PROMIS scale: PROMIS-10 Flowsheet Row Office Visit from 01/04/2023 in Neurology Office Visit from 10/04/2022 in Neurology Global Physical Health T Score 44.9 47.7 Global Mental Health T Score 45.8 50.8 0-10 Standard Pain Scale 4 5 *PROMIS-10 scoring scale: mean = 50, over 50 is above average, under 50 is below average In addition, the following non-motor symptoms and palliative concerns were evaluated: Sleep/Fatigue: REM sleep behavior disorder: no Restless Legs Syndrome: no Leg swelling: Impaired sense of smell: Cognition: Cognitive impairment: yes Some short-term trouble. MoCA Cognitive assessment: Hallucinations and delusions: no Apathy: yes Impulse control disorder: Palliative Concerns: Caregiver burden: Spiritual concerns: Advanced directives on file: Palliative services: Therapy and Exercise: Last PT Date: Last OT Date: Last ST Date: Exercises Regularly: No not like he was. doing more around the house. mowing- didn't do this last year ALLERGIES No Known Allergies Current Outpatient Medications Medication Sig spironolactone (ALDACTONE) 25 mg tablet lisinopril (ZESTRIL, PRINIVIL) 40 mg tablet Take 20 mg by mouth once daily. 20 mg twice daily simvastatin (ZOCOR) 40 mg tablet Take 40 mg by mouth daily at bedtime. UBIDECARENONE (COENZYME Q10) 100 MG cap Take 100 mg by mouth once daily. carbidopa-levodopa CR (SINEMET CR) 25-100 mg per tablet Take 2 tablets by mouth three times daily. No current facility-administered medications for this visit. Objective Vital Signs: Resp 16 Wt 72.6 kg (160 lb) SpO2 98% BMI 25.06 kg/m? Orthostatic Vitals: Sitting: BP 114/69 Pulse 71 Weight: 72.6 kg (160 lb) No LMP for male patient. Body mass index is 25.06 kg/m?. General Physical Examination: General: Awake, alert, interactive, no acute distress, good nutritional status, normal development, well-kept General Neurological Examination: Neurological Exam Mental Status Awake and alert. Language is fluent with no aphasia. Movement Disorders Scales Performed: MDS-UPDRS Motor subscale condition of exam Medication Off/On/Naiive ON Time of UPDRS 0810 Time of Last Medication 0530 Last Medication Taken 2 tabs Sinemet CR 25/100 DBS Right N/A DBS Left N/A MDS-UPDRS Motor subscale scores Speech 1-Slight. Loss of modulation, diction or volume, but still all words easy to understand. Facial Expression 1-Slight. Minimal masked facies manifested only by decreased frequency of b (more content not included)... [facility] 01-04-2023 History of Presen t illness Narrative [facility] - FOLLOW UP EVALUATION Eduardo Tello MD [address] [place] [address] [address] [facility] [id number] I had the pleasure of seeing Mr. Aguilar for follow up today. He is a 77 year old right-handed male with a history of PD since 2015. He is seen with his . Subjective Previous Plan-10/04/2022 Visit: stop Sinemet and start Rytary instead physical therapy Interval History: Tolerating Sinemet CR much better. Tremor and balance are better. No wearing off. Happy with it. Rytary did help a lot but it was too expensive. Parkinson's Medication Schedule - as of the start of the visit: Medications 8-9 3-4p Bed- 11p Sinemet CR 25/100 2 2 2 Parkinson's Motor Complications Medication benefit onset: unclear Medication duration: unclear Wearing off: no Painful off-state dystonia: no Dyskinesia: no Prior Anti-Parkinson Therapies Carbidopa/Levodopa Carbidopa/Levodopa ER (Rytary) (Comment: responded well but too expensive) Questionnaires In addition, the following areas that may be affected by abnormal involuntary movements were evaluated: Daily activities Difficulties with eating: Yes (slight) Difficulties in dressing: Yes (slight) Difficulties with hygiene activities: Yes (slight) Difficulties with handwriting: Yes (slight) Difficulties with doing hobbies and other activities: Yes (slight) Difficulties turning in bed: 0 (none) Difficulties getting out of bed, car or chair: Yes (slight) Tremors/Gait/Balance Shaking or tremors: Yes (slight) Walking and balance problems: Yes (slight) Number of falls in the Last Month: 0 Gait freezin (none) Autonomic/Pain Lightheadeness on standin (none) Urinary problems: 0 (none) Constipation problems: Yes (slight) Pain and other sensations: 0 (none) Speech/Swallowing Speech problems: 0 (none) Drooling: Yes (slight) Chewing and swallowing problems: 0 (none) Sleep/Fatigue Sleep problems: 0 (none) Daytime sleepiness: Yes (slight) Fatigue: Yes (slight) Mood/Behavior Depression: PHQ-9 Score: 6 usually representing mild (5-9) depression. Anxiety: ANNETTE-7 Total Score: 3 usually representing no significant (0-4) anxiety. Finally, the following table shows the patient's overall global physical and mental health using the PROMIS scale: PROMIS-10 Flowsheet Row Office Visit from 01/04/2023 in Neurology Office Visit from 10/04/2022 in Neurology Global Physical Health T Score 44.9 47.7 Global Mental Health T Score 45.8 50.8 0-10 Standard Pain Scale 4 5 *PROMIS-10 scoring scale: mean = 50, over 50 is above average, under 50 is below average In addition, the following non-motor symptoms and palliative concerns were evaluated: Sleep/Fatigue: REM sleep behavior disorder: no Restless Legs Syndrome: no Leg swelling: Impaired sense of smell: Cognition: Cognitive impairment: yes Some short-term trouble. MoCA Cognitive assessment: Hallucinations and delusions: no Apathy: yes Impulse control disorder: Palliative Concerns: Caregiver burden: Spiritual concerns: Advanced directives on file: Palliative services: Therapy and Exercise: Last PT Date: Last OT Date: Last ST Date: Exercises Regularly: No not like he was. doing more around the house. mowing- didn't do this last year ALLERGIES No Known Allergies Current Outpatient Medications Medication Sig spironolactone (ALDACTONE) 25 mg tablet lisinopril (ZESTRIL, PRINIVIL) 40 mg tablet Take 20 mg by mouth once daily. 20 mg twice daily simvastatin (ZOCOR) 40 mg tablet Take 40 mg by mouth daily at bedtime. UBIDECARENONE (COENZYME Q10) 100 MG cap Take 100 mg by mouth once daily. carbidopa-levodopa CR (SINEMET CR) 25-100 mg per tablet Take 2 tablets by mouth three times daily. No current facility-administered medications for this visit. Objective Vital Signs: Resp 16 Wt 72.6 kg (160 lb) SpO2 98% BMI 25.06 kg/m Orthostatic Vitals: Sitting: BP 114/69 Pulse 71 Weight: 72.6 kg (160 lb) No LMP for male patient. Body mass index is 25.06 kg/m . General Physical Examination: General: Awake, alert, interactive, no acute distress, good nutritional status, normal development, well-kept General Neurological Examination: Neurological Exam Mental Status Awake and alert. Language is fluent with no aphasia. Movement Disorders Scales Performed: MDS-UPDRS Motor subscale condition of exam Medication Off/On/Naiive ON Time of UPDRS 0810 Time of Last Medication 0530 Last Medication Taken 2 tabs Sinemet CR 25/100 DBS Right N/A DBS Left N/A MDS-UPDRS Motor subscale scores Speech 1-Slight. Loss of modulation, diction or volume, but still all words easy to understand. Facial Expression 1-Slight. Minimal masked facies manifested only by decreased frequency of blinking. Rigidity Neck 0-Normal. No rigidity. Rigidity Right Upper Extremity 0-Normal. No rigidity. Rigidity Left Upper Extremity 0-Normal. No rigidity. Rigidity Right Lower Extremity 0-Normal. No rigidity. Rigidity Left Lower Extremity 0-Normal. No rigidity. Finger Taps Right 1-Slight. a) the regular rhythm is broken with one or two interruptions or hesitations of the tapping movement, b) slight slowing, c) the amplitude decrements near the end of the 10 taps. Finger Taps Left 1-Slight. a) the regular rhythm is broken with one or two interruptions or hesitations of the tapping movement, b) slight slowing, c) the amplitude decrements near the end of the 10 taps. Hand Movements Right 0-Normal. No problem. Hand Movements Left 1-Slight. a) the regular rhythm is broken with one or two interruptions or hesitations of the movement, b) slight slowing, c) the amplitude decrements near the end of the task. Arm Movements Right 1-Slight. a) the regular rhythm is broken with one or two interruptions or hesitations of the movement, b) slight slowing, c) the amplitude decrements near the end of the sequence. Arm Movements Left 2-Mild. a) 3 to 5 interruptions during the movements, b) mild slowing, c) the amplitude decrements midway in the sequence. Toe Taps Right 0-Normal. No problem. Toe Taps Left 2-Mild. a) 3 to 5 interruptions during the tapping movements, b) mild slowing, c) the amplitude decrements midway in the task. Leg Agility Right 0-Normal. No problems. Leg Agility Left 1-Slight. a) the regular rhythm is broken with one or two interruptions or hesitations of the movement, b) slight slowing, c) the amplitude decrements near the end of the task. Arise From Chair 0-Normal. No problems. Able to arise quickly without hesitation. Gait 1-Slight. Independent walking with minor gait impairment. Gait Freezing 0-Normal. No freezing. Posture Stability 0-Normal. No problems: recovers with one or two steps. (deferred) Posture 1-Slight. Not quite erect, but posture could be normal for older person. Body Bradykinesia 2-Mild. Mild global slowness and poverty of spontaneous movements. Postural Tremor Hand Right 0-Normal. No tremor. Postural Tremor Hand Left 0-Normal. No tremor. Kinetic Tremor Right 0-Normal. No tremor. Kinetic Tremor Left 0-Normal. No tremor. Rest Tremor Amplitude Right Upper Extremity 1-Slight. < 1 cm in maximal amplitude. Rest Tremor Amplitude Left Upper Extremity 1-Slight. < 1 cm in maximal amplitude. Rest Tremor Amplitude Right Lower Extremity 0-Normal. No tremor. Rest Tremor Amplitude Left Lower Extremity 0-Normal. No tremor. Rest Tremor Amplitude Lip/Jaw 0-Normal. No tremor. Rest Tremor Constancy 4-Severe. Tremor at rest is present > 75% of the entire examination period. MDS-UPDRS Motor subscale totals Left Total 8 Right Total 3 Midline Total 6 Tremor Total / 10 6 PIGD Total / 3 1 Overall Total 21 % Change Compared to Last Filed Total Assessment and Plan: Assessment Mr. Aguilar is a right-handed 77 year old year old male with history significant for HTN, with likely early Parkinson's disease. Classic left hand resting and postural tremor. Subtle rigidity and bradykinesia on the left side. Anosmia and RBD. All consistent with Parkinson's disease and motor symptoms significantly improved with initiation of low dose Sinemet. He had difficulty tolerating Sinemet IR. He did very well with Rytary but was too costly. He is currently taking Sinemet CR and is happy with his symptoms. Discussed the importance of exercise. Consider PT in the fall. The following are the current problems noted and addressed during this visit: Parkinson disease (hcc) (primary encounter diagnosis) Plan 01/04/2023 Visit: Continue your medications as you have been taking them. We are not making any changes today. If you feel you are not tolerating them or your symptoms are changing before your next appointment, please feel free to send me a Cellyt message or contact the office - Please consider physical therapy in the fall. Let me know and I will write an order for it - - Updated Movement Disorders Medication Schedule: Medications 8-9 3-4p Bed- 11p Sinemet CR 25/100 2 2 2 Medical Decision Making: Problems: Moderate: 1+ chronic illnesses with change Risk: Moderate: Drug management Medical Decision Making Level: 4 - Moderate Thank you for allowing me to be part of the clinical care of this patient! I look forward to continued participation in the patient s care with you. Please do not hesitate to call with any questions. Sincerely, Elaine Mcgill MD documented in this encounter [facility] 01-04-2023 Instructions Elaine Mcgill MD - 01/04/2023 8:16 AM EDT It was a pleasure to see you today. We addressed the following diagnoses: Parkinson disease (hcc) (primary encounter diagnosis) My recommendations are as follows: Continue your medications as you have been taking them. We are not making any changes today. If you feel you are not tolerating them or your symptoms are changing before your next appointment, please feel free to send me a [employer] message or contact the office - Please consider physical therapy in the fall. Let me know and I will write an order for it - Movement Disorders Medication Schedule: Medications 8-9 3-4p Bed- 11p Sinemet CR 25/100 2 2 2 Return in about 6 months (around 07/07/2023). If there are any concerns before your next visit, please call or you can send a message through [employer]. You can also now schedule and select appointments through [employer]. Elaine Mcgill MD documented in this encounter [facility] 11-03-2022 Miscellaneous Notes Appeal startes. Appeal letter and last office note faxed to appeals Dept at [facility] at number provided on letter. Confirmation received Can we appeal? Reasoning for Neupro is since patch form is less likely to cause the nausea he experiences with other Parkinson's medication. Electronic PA for neupro denied Not on preferred drug list. Preferred drug recommended is pramipexole. documented in this encounter [facility] 11-02-2022 Miscellaneous Notes Patient called In today if they can get a [facility] in [place] of the : Extended Release Generic Carbidopa that she has suggested to the patient during the last appointment. If the patient can handle the medication they will let Dr Mcgill know and request the prescript to be sent to the mail in pharmacy . They are holding off on the patch as it is 800 for the month supply, and the medication that was sent to the pharmacy yesterday she didn't take because it is the one that the patient is currently having difficulties taking per Amparo. If you have any questions , please call [phone]. Thank you! Doyr Kaur documented in this encounter [facility] 11-01-2022 Miscellaneous Notes Call to patient, no answer. Detailed message left on voicemail. Will go back to Sinemet as he was taking it before, 5 tabs per day. Will add Neupro patch and see if that can improve his symptoms without bothersome side effects The following approved medication requests have been transmitted electronically. Requested Prescriptions Signed Prescriptions Disp Refills carbidopa-levodopa (SINEMET 25-100) 25-100 mg per tablet 150 tablet 11 Sig: Take 1 tablet daily at 10a, 1 tablet daily at noon, 1 tablet daily at 3-4pm, 1 tablet daily at 6-7p, and 1 tablet daily at 8pm. Authorizing Provider: ELAINE MCGILL rotigotine (NEUPRO) 2 mg/24 hour patch 30 Patch 11 Sig: Apply 1 Patch as directed once daily. Authorizing Provider: ELAINE MCGILL MD Pt and his called to report that the Rytary is over $1000 per month. He wanted to try the other medication that Dr. Mcgill recommended. Please send to [facility]. documented in this encounter [facility] 10-04-2022 Note HNO ID: [id number] Author: Elaine Mcgill MD Service: ? Author Type: Physician Type: Progress Notes Filed: 10/05/2022 7:26 AM Note Text: [facility] - FOLLOW UP EVALUATION Eduardo Tello MD [address] [facility] [address] I had the pleasure of seeing Mr. Aguilar for follow up today. He is a 77 year old right-handed male with a history of PD since 2014. He is seen with his . Subjective Previous Plan-02/27/2022 Visit: - go back to taking Sinemet 3 times a day - physical therapy - watch the blood pressure. Drinking more water may help the lightheadedness. Interval History: Feeling slower. Still feels sick if doesn't eat with Sinemet doses. Zofran doesn't help. Better if he takes 1 at a time- taking 1 tab around 5 times per day. Nausea starts 30 minutes after a dose and lasts a couple of hours, basically until the next one is due. Stomach has always been sensitive. PT was helpful while he was doing it. Lasted until July. Then went to [place]. Rides stationary bike, walks around basement. Starting to mow using zero turn mower. Parkinson's Medication Schedule - as of the start of the visit: Medications 10 noon 3-4 6-7p 8p Sinemet 25/100 1 1 1 1 1 Parkinson's Motor Complications Wearing off: no Dyskinesia: no Prior Anti-Parkinson Therapies Carbidopa/Levodopa Questionnaires In addition, the following areas that may be affected by abnormal involuntary movements were evaluated: Daily activities Difficulties with eating: Yes (mild) Difficulties in dressing: Yes (slight) slow, some trouble with buttons, socks Difficulties with hygiene activities: Yes (slight) Difficulties with handwriting: Yes (slight) Difficulties with doing hobbies and other activities: Yes (mild) Difficulties turning in bed: 0 (none) Difficulties getting out of bed, car or chair: Yes (moderate) slow Tremors/Gait/Balance Shaking or tremors: Yes (mild) Walking and balance problems: Yes (slight) Number of falls in the Last Month: 0 Gait freezin (none) Autonomic/Pain Lightheadeness on standing: Yes (slight) Urinary problems: Yes (slight) Constipation problems: Yes (slight) Pain and other sensations: Yes (mild) Speech/Swallowing Speech problems: Yes (slight) Droolin (none) Chewing and swallowing problems: 0 (none) Sleep/Fatigue Sleep problems: 0 (none) Daytime sleepiness: Yes (slight) Fatigue: Yes (mild) Mood/Behavior Depression: PHQ-9 Score: 7 usually representing mild (5-9) depression. Anxiety: ANNETTE-7 Total Score: 4 usually representing no significant (0-4) anxiety. Finally, the following table shows the patient's overall global physical and mental health using the PROMIS scale: PROMIS-10 Flowsheet Row Office Visit from 10/04/2022 in Neurology Office Visit from 02/27/2022 in Neurology Global Physical Health T Score 47.7 42.3 Global Mental Health T Score 50.8 41.1 0-10 Standard Pain Scale 5 4 *PROMIS-10 scoring scale: mean = 50, over 50 is above average, under 50 is below average ALLERGIES No Known Allergies Current Outpatient Medications Medication Sig carbidopa-levodopa (SINEMET 25-100) 25-100 mg per tablet Take 2 tablets by mouth three times daily. (Patient taking differently: Take 2 tablets by mouth three times daily. 2 tab at 10am, 1-3pm and 7pm) ondansetron (ZOFRAN) 4 mg tablet Take 1.5 tabs 30 minutes before Sinemet dose spironolactone (ALDACTONE) 25 mg tablet lisinopril (ZESTRIL, PRINIVIL) 40 mg tablet Take 20 mg by mouth once daily. 20 mg twice daily simvastatin (ZOCOR) 40 mg tablet Take 40 mg by mouth daily at bedtime. UBIDECARENONE (COENZYME Q10) 100 MG cap Take 100 mg by mouth twice daily. No current facility-administered medications for this visit. Objective Vital Signs: BP 163/68 (BP Site: Left Arm, BP Position: Sitting, BP Cuff Size: Regular Adult) Pulse (!) 59 Resp 16 Ht 170.2 cm (5' 7 ) Wt 70.3 kg (155 lb) SpO2 98% BMI 24.28 kg/m? Orthostatic Vitals: Standing: BP 180/81 Pulse Weight: 70.3 kg (155 lb) Height: 170.2 cm (5' 7 ) No LMP for male patient. Body mass index is 24.28 kg/m?. General Physical Examination: General: Awake, alert, interactive, no acute distress, good nutritional status, normal development, well-kept General Neurological Examination: Neurological Exam Mental Status Awake and alert. Language is fluent with no aphasia. Movement Disorders Scales Performed: MDS-UPDRS Motor subscale condition of exam Medication Off/On/Naiive OFF Time of UPDRS Time of Last Medication 1900 Last Medication Taken DBS Right N/A DBS Left N/A MDS-UPDRS Motor subscale scores Speech 2-Mild. Loss of modulation, diction, or volume, with a few words unclear, but the overall sentences easy to follow. Facial Expression 2-Mild. In addition to decreased eye-blink frequency, Masked facies present in the lower face as well, namely fewer movements around the (more content not included)... [facility] 07-12-2022 Note Therapy Diagnosis Assessed Decreased functional activity tolerance (780.99) (R68.89) Resting tremor (781.0) (G25.2) Fine motor impairment (V49.89) (R29.818,R29.898) Plan Goals: Goals set and discussed today. STG: CHASE will demonstrate good carryover of HEP for ROM, strengthening and coordination in order to improve functional independence at home/work by 2 weeks. 05/23/22 Pt reporting good carryover with HEP 07/12/22 Pt reports great carryover with HEP LTG: CHASE will demonstrate improved functional independence at home by a decreased DASH score to under 30% by 7 weeks. 04/20 score increased this date, continue 05/23/22 Increase score of 63.64% 07/12/22 31.82% goal partially met. 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 05/23/22 54lbs NICOLAS this date, UPGRADE GOAL to 56lbs NICOLAS 07/12/22 R hand 75lbs, L 55lbs. GOAL PARTIALLY MET LTG: CHASE will demo increased legibility with hand writing and size with uncued writing of his name by 7 weeks. 05/23/22 continue 07/12/22 Pt demos significant improvement with legibiity. GOAL MET LTG: CHASE will report less difficulty with UB/LB dressing by 7 weeks. 07/12/22 Pt reporting score of 4 on quickdash this date for washing back, GOAL MET LTG: CHASE will demo ability to button/unbutton x3 buttons in under 90 seconds 07/12/22 89 seconds this date. GOAL MET LTG: Chase will score 25/30 on MOCA or better to demonstrate ability to continue to perform high level tasks/IADLS 07/13/22 this date. GOAL MET Motor Function/Control/Tone: Intervention plan include: ADLs, cognitive, education/instruction , emotional regulation, IADLs, manual therapy , neuromuscular re-education , therapeutic activities and therapeutic exercises. Assessment Pt demos significant improvements with re-eval this date. Pt has met goals with small engine technician strength, FMC, ADLs/IADLs, cognition and hand handwriting. Pt reporting things have been much easier for him at home. Pt demos good understand of FMC and UE strength. Pt d/c from therapy at this time. Adult Risk Screening There are no spiritual/cultural practices/values/needs that are important to know Initial Fall Risk Screening: CHASE has fallen in the last 6 months. His fall did not result in injury. CHASE does not have a fear of falling. He does not need assistance with sitting, standing or walking. Does not need assistance walking in his home. He needs assistance in an unfamiliar setting. The patient is not using an assistive device. Fall Risk Screening: Patient is identified as a fall risk. Care Plan: Moderate Risk: Low risk interventions plus: do not leave patient on exam table unattended, supervised activity, educate patient/family on falls prevention, review safety initiatives with patient/family, family at bedside as allowed, yellow falls risk band, focus rounding attention, locate patient in area of high visibility, wheelchair, bed, or personal alarm, bedside commode, elevated toilet seat and pharmacy consult for medication concerns. Altered Mobility: unsteady gait. Alteration in Mental Status: no. Insurance Insurance reviewed Visit number: 16 Approved number of visits: 15 Authorization date range: 05/23/22-07/21/22 Authorization required after evaluation plus one more visit for recheck insurance Subjective Patient reports:. Pt seen for recheck this date. Pt reporting significant improvements across ADLs/IADLs. Pt also reporting increased memory lately. Precautions: pacemaker 08/2021. Fall Risk: Objective ROM/JointMobility: (Range of Motion in degrees) Additional Information: No limitations in overhead reaching. Strength: Hands (Hernandez: P! Denotes Pain with Movement) Hand Dominance: Right Utilization Management Manager Strength: level III 75 lbs on the right and level III 55 lbs on the left. The hernandez pinch trials for the right 24 lbs and left 19 lbs. 3 Point Pinch: right 18 lbs and left 18 lbs. Coordination and Manual Dexterity: 9 Hole Peg Test: 29 seconds on right, 38.5 seconds on the left Outcome Measures: Quick Dash score: 31.82. MOCA:. (3) Treatment Time in clinic started at 1115 am Time in clinic ended at 1200 am Total time in clinic is 45 minutes. Total timed code time is 43 minutes. Therapeutic Activity (81857): timed minutes 43 . Pt seen for recheck this date to address current goals. Completed functional assessments with pt including: small engine technician/pinch dynamometer, quick dash, ROM assessment, edema measurements, 9HPT and pt interview. All goals addressed and reviewed with pt. Self care/home management:. 'Scores and Scales' Signatures Electronically signed by : ABDIRAHMAN Keith; Jul 13 2022 11:29AM EST (Author) [employer] 06-12-2022 History of Presen t illness Narrative Typing performance:Alphabet untimedalphabet 26.73 secondsalphabet 25.85 secondsalphabet with vowels capitalized 1:45:3C words in 90 seconds, 9 wordsalphabet 25:27alphabet: 25.01Pt demos decreased time needed for alphabet as task progresses, pt demos slow time when cognitive tasks are place. Pt reporting ability to complete exercises with 3lb weight easily, upgrade to 5. Pt demos much difficulty with tricep extension, requires rest break. [facility] Work Phone: 05-25-2022 History of Presen t illness Narrative Pt demos significant improvements with re-eval this date after a break. Pt reporting his ADLs have been getting progressively more difficult. Pt reporting good carryover of HEP and completing it each evening. [facility] Work Phone: 05-15-2022 History of Presen t illness Narrative Patient was identified by name and date.Added 1/2 kneeling activities with pt demoing impaired balance requiring CGA. No LOB and pt able to stand IND from 1/2 kneel position. He demos muscular fatigue at end of session. 1 LOB with incline lateral flexion requriing min A to correct. [facility] Work Phone: 04-17-2022 History of Presen t illness Narrative Patient was identified by name and date.Pt arrives after being placed on hold since 04/17/22 to perform HEP IND. Today he presents with similar LE strength since recheck however balance and dual tasking (physical & cog task) have declined slightly since recheck. He also demos impaired gait mechanics including trunk rotation and arm swing however his heel strike has become more consistent. These areas had initially improved since his eval when compared to recheck 04/17/22 which demonstrates importance of PT. For this reason he will benefit from skilled PT with a focus on gait training, neuro re-ed, and functional strengthening. Pt with agreement and understanding. [facility] Work Phone: 03-29-2022 Miscellaneous Notes Received fax from [facility] with PT plan of care for the patient. Items placed in KA's inbox for review and signature. Will fax upon completion. NATALIA Johnson, RN March 29, 2022 10:55 AM documented in this encounter [facility] 03-28-2022 History of Presen t illness Narrative Patient was identified by name and date.Mr. Aguilar is progressing well through their POC addressing PD. Pt has attended 6 sessions since 03/28/22. The pt demonstrates and verbalizes significant improvements in LE strength and balance which allows for greater ease with transfers and ambulation as well as reduces risk of falls. He does still demo some limitations in functional strength and balance however his most significant impairment is gait mechanics. Pt's LUE with difficulty during posterior swing therefore pt given pec stretch for this. Pt instructed to prioritize gait mechanics with focus on arm swing for HEP. Pt is being placed on hold for 30 days to attempt performing their home exercise program independently then will have recheck in 30 days. Pt instructed to contact with any problems, questions, or adjustments. This will serve as the patient s discharge if they elect not to resume skilled PT within 30 days. Pt verbalized understanding and agreement to goals and POC. Thank you for this referral and please call [phone] with any questions or concerns. [facility] Work Phone: 02-27-2022 History of Presen t illness Narrative [facility] - FOLLOW UP EVALUATION Eduardo Tello MD, MD [address] [facility] [address] [facility] [address] I had the pleasure of seeing Mr. Aguilar for follow up today. He is a 76 year old right-handed male with a history of PD since 2014. He is seen with his . Subjective Previous Plan-02/28/2021 Visit: Parkinson's Disease - Continue Sinemet as noted below. Try 4 mg Zofran one hour before the first dose of Sinemet in the morning. If you are still nauseated on 4 mg Zofran, may increase to 6mg Zofran. But take Zofran 30-60 min prior to your Sinemet dose, so that the Zofran is working when the Sinemet kicks in. Exercise Hydration, use caution with position changes. Interval History: BP is high today. He cut back on BP medication. Pacemaker in August in [place], HR was 29. Lost some weight. Tired. Wears CPAP. Reduced Sinemet on his own a couple of weeks ago and cannot say why. Has to take it with food. Doesn't feel better or worse on lower dose. More tired on less. Off balance. Fell 1-2 times. Walks backwards when gets off balance. Can be standing and start walking backwards. Tries to grab something, misses it, and falls. Parkinson's Medication Schedule - as of the start of the visit: 9a 3-4 Sinemet 25/100 2 2 Parkinson's Motor Complications Wearing off: no Dyskinesia: no Prior Anti-Parkinson Therapies Carbidopa/Levodopa Questionnaires In addition, the following areas that may be affected by abnormal involuntary movements were evaluated: Daily activities Difficulties with eating: Yes (mild) Difficulties in dressing: Yes (mild) Difficulties with hygiene activities: Yes (slight) Difficulties with handwriting: Yes (mild) Difficulties with doing hobbies and other activities: Yes (mild) Difficulties turning in bed: Yes (slight) Difficulties getting out of bed, car or chair: Yes (mild) Tremors/Gait/Balance Shaking or tremors: Yes (mild) Walking and balance problems: Yes (slight) Number of falls in the Last Month: 1 Gait freezing: Yes (slight) Autonomic/Pain Lightheadeness on standing: Yes (slight) Urinary problems: Yes (slight) Constipation problems: Yes (slight) Pain and other sensations: Yes (slight) Speech/Swallowing Speech problems: Yes (mild) Drooling: Yes (slight) Chewing and swallowing problems: 0 (none) Sleep/Fatigue Sleep problems: 0 (none) Daytime sleepiness: Yes (slight) Fatigue: Yes (mild) Mood/Behavior Depression: PHQ-9 Score: 7 usually representing mild (5-9) depression. Anxiety: ANNETTE-7 Total Score: 3 usually representing no significant (0-4) anxiety. Finally, the following table shows the patient's overall global physical and mental health using the PROMIS scale: PROMIS-10 Flowsheet Row Office Visit from 02/27/2022 in Neurology Office Visit from 02/28/2021 in Neurology Global Physical Health T Score 42.3 42.3 Global Mental Health T Score 41.1 41.1 0-10 Standard Pain Scale 4 4 *PROMIS-10 scoring scale: mean = 50, over 50 is above average, under 50 is below average In addition, the following Parkinson Lifestyle-associated features were evaluated: Conditions Prior to Dx: Depression: No Anxiety: No Melanoma: No Constipation: No Yelling: No Head Trauma: No Habits/exposures Prior to Dx Smoking: Caffeinated coffee (1-cup+): Caffeinated soda/tea (2 cups+): Alcohol (1 bottle/shot/glass+): Exercise (3x/wk+): Ibuprofen use (1x/wk+): Pesticides: Welding: ALLERGIES No Known Allergies Current Outpatient Medications Medication Sig ondansetron (ZOFRAN) 4 mg tablet Take 1.5 tabs 30 minutes before Sinemet dose spironolactone (ALDACTONE) 25 mg tablet lisinopril (ZESTRIL, PRINIVIL) 40 mg tablet Take 20 mg by mouth once daily. simvastatin (ZOCOR) 40 mg tablet Take 40 mg by mouth daily at bedtime. UBIDECARENONE (COENZYME Q10) 100 MG cap Take 100 mg by mouth twice daily. carbidopa-levodopa (SINEMET 25-100) 25-100 mg per tablet Take 2 tablets by mouth three times daily. No current facility-administered medications for this visit. Objective Vital Signs: BP 184/96 (BP Site: Right Arm, BP Position: Sitting, BP Cuff Size: Regular Adult) Pulse 80 Ht 170.2 cm (5' 7 ) Wt 72.7 kg (160 lb 3.2 oz) SpO2 98% BMI 25.09 kg/m Orthostatic Vitals: None for this encounter Weight: 72.7 kg (160 lb 3.2 oz) Height: 170.2 cm (5' 7 ) No LMP for male patient. Body mass index is 25.09 kg/m . General Physical Examination: General: Awake, alert, interactive, no acute distress, good nutritional status, normal development, well-kept General Neurological Examination: Neurological Exam Mental Status Awake and alert. Speech is normal. Language is fluent with no aphasia. Fund of knowledge is appropriate for level of education. Movement Disorders Scales Performed: MDS-UPDRS Motor subscale condition of exam Medication Off/On/Naiive OFF Time of UPDRS Time of Last Medication 1900 Last Medication Taken 2 tabs Sinemet 25/100 DBS Right N/A DBS Left N/A MDS-UPDRS Motor subscale scores Speech 2-Mild. Loss of modulation, diction, or volume, with a few words unclear, but the overall sentences easy to follow. Facial Expression 2-Mild. In addition to decreased eye-blink frequency, Masked facies present in the lower face as well, namely fewer movements around the mouth, such as less spontaneous smiling, but lips not parted. Rigidity Neck 2-Mild. Rigidity detected without the activation maneuver, but full range of motion is easily achieved. Rigidity Right Upper Extremity 0-Normal. No rigidity. Rigidity Left Upper Extremity 1-Slight. Rigidity only detected with activation maneuver. Rigidity Right Lower Extremity 0-Normal. No rigidity. Rigidity Left Lower Extremity 0-Normal. No rigidity. Finger Taps Right 2-Mild. a) 3 to 5 interruptions during tapping, b) mild slowing, c) the amplitude decrements midway in the 10-tap sequence. Finger Taps Left 4-Severe. Cannot or can only barely perform the task because of slowing, interruptions or decrements. Hand Movements Right 1-Slight. a) the regular rhythm is broken with one or two interruptions or hesitations of the movement, b) slight slowing, c) the amplitude decrements near the end of the task. Hand Movements Left 1-Slight. a) the regular rhythm is broken with one or two interruptions or hesitations of the movement, b) slight slowing, c) the amplitude decrements near the end of the task. Arm Movements Right 1-Slight. a) the regular rhythm is broken with one or two interruptions or hesitations of the movement, b) slight slowing, c) the amplitude decrements near the end of the sequence. Arm Movements Left 2-Mild. a) 3 to 5 interruptions during the movements, b) mild slowing, c) the amplitude decrements midway in the sequence. Toe Taps Right 1-Slight. a) the regular rhythm is broken with one or two interruptions or hesitations of the tapping movement, b) slight slowing, c) the amplitude decrements near the end of the ten taps. Toe Taps Left 3-Moderate. a) more than 5 interruptions during the tapping movements or at least one longer arrest (freeze) in ongoing movement, b) moderate slowing, c) the amplitude decrements starting after the first tap. Leg Agility Right 1-Slight. a) the regular rhythm is broken with one or two interruptions or hesitations of the movement, b) slight slowing, c) the amplitude decrements near the end of the task. Leg Agility Left 1-Slight. a) the regular rhythm is broken with one or two interruptions or hesitations of the movement, b) slight slowing, c) the amplitude decrements near the end of the task. Arise From Chair 1-Slight. Arising is slower than normal, or may need more than one attempt, or may need to move forward in the chair to arise. No need to use the arms of the chair. Gait 2-Mild. Independent walking but with substantial gait impairment. Gait Freezing 0-Normal. No freezing. Posture Stability 0-Normal. No problems: recovers with one or two steps. (deferred) Posture 1-Slight. Not quite erect, but posture could be normal for older person. Body Bradykinesia 3-Moderate. Moderate global slowness and poverty of spontaneous movements. Postural Tremor Hand Right 0-Normal. No tremor. Postural Tremor Hand Left 0-Normal. No tremor. Kinetic Tremor Right 0-Normal. No tremor. Kinetic Tremor Left 0-Normal. No tremor. Rest Tremor Amplitude Right Upper Extremity 1-Slight. < 1 cm in maximal amplitude. Rest Tremor Amplitude Left Upper Extremity 2-Mild. > 1 cm but < 3 cm in maximal amplitude. Rest Tremor Amplitude Right Lower Extremity 1-Slight. < 1 cm in maximal amplitude. Rest Tremor Amplitude Right Lower Extremity 0-Normal. No tremor. Rest Tremor Amplitude Lip/Jaw 0-Normal. No tremor. Rest Tremor Constancy 4-Severe. Tremor at rest is present > 75% of the entire examination period. MDS-UPDRS Motor subscale totals Left Total 14 Right Total 8 Midline Total 13 Tremor Total / 10 8 PIGD Total / 3 2 Overall Total 39 % Change Compared to Last Filed Total Assessment and Plan: Assessment Mr. Aguilar is a right-handed 76 year old year old male with history significant for HTN, with likely early Parkinson's disease. Classic left hand resting and postural tremor. Subtle rigidity and bradykinesia on the left side. Anosmia and RBD. All consistent with Parkinson's disease and motor symptoms significantly improved with initiation of low dose Sinemet. Since his last visit he had a pacemaker installed. He is still not feeling as well as he did prior. Noting fatigue. He reduced Sinemet on his own recently and feels no better, possibly worse. Fatigue can be due to Parkinson's but treatment options are limited. Recommend discussing with PCP so any treatable causes can be addressed. The following are the current problems noted and addressed during this visit: Parkinson disease (hcc) (primary encounter diagnosis) Gait instability Plan 02/27/2022 Visit: - go back to taking Sinemet 3 times a day - physical therapy - watch the blood pressure. Drinking more water may help the lightheadedness. Updated Parkinson's Medication Schedule: Medications 10 3 7 Sinemet 25/100 2 2 2 Return at or around: 08/28/22 Medical Decision Making: Problems: Moderate: 1+ chronic illnesses with change Risk: Moderate: Drug management Medical Decision Making Level: 4 - Moderate Thank you for allowing me to be part of the clinical care of this patient! I look forward to continued participation in the patient s care with you. Please do not hesitate to call with any questions. Sincerely, Elaine Mcgill MD documented in this encounter [facility] 02-27-2022 Instructions Elaine Mcgill MD - 02/27/2022 12:08 PM EDT It was a pleasure to see you today. We addressed the following diagnoses: Parkinson disease (hcc) (primary encounter diagnosis) Gait instability My recommendations are as follows: - go back to taking Sinemet 3 times a day - physical therapy - watch the blood pressure. Drinking more water may help the lightheadedness. Movement Disorders Medication Schedule: Medications 10 3 7 Sinemet 25/100 2 2 2 Return in about 6 months (around 08/28/2022). If there are any concerns before your next visit, please call or you can send a message through [employer]. You can also now schedule and select appointments through [employer]. Elaine Mcgill MD documented in this encounter [facility] Parkinson disease (HCC)- Primary Paralysis agitans [facility] Diagnosis Parkinson's disease without dyskinesia or fluctuating manifestations (HCC)- Primary [facility] of [facility] CHASE AGUILAR was evaluated today for decreased functional activity independence and decreased balance s/t parkinsonism . CHASE presents with deficits in UE strength, ADLs/IADLs as indicated by quickdash, FMC s/t resting tremor, decreased transfer safety. CHASE would benefit from regular outpatient OT x2 /week for 3 weeks followed by re-evaluation in order to improve AROM/PROM, strengthening, coordination, and activity tolerance to improve functional independence in ADLs/IADLs. CHASE AGUILAR presents with good prognosis considering supportive factors such as social support, and current presentation of diagnosis with consideration of progression of parkinsons. CHASE AGUILAR presents with good understanding and teach back of today's education and provides input into goals/POC. * Interdisciplinary Team Communication: occupational therapy . * Clinical Presentation: stable and/or uncomplicated characteristics * Level of Complexity: low * Problems To Be Addressed: decreased ADL performance . PT referral sent. [facility] Work Phone: History of Present illness Narrative* Mr. Aguilar arrives to outpatient PT with s/s consistent with PD. Pt presents with the following impairments: impaired gait, impaired balance, impaired endurance, impaired posture, BLE weakness, hypokinesia, and bradykinesia. These impairments contribute to difficulty in activity limitations and participation restrictions including dressing, stair negotiation, walking, standing, yardwork. The ptwill benefit from skilled PT services to address the above stated impairments and functional limitations to maximize participation and ease in household and social related activities. The pt has a good prognosis when considering positive factors including motivation and support with barriers such as comorbidities. The pt verbalized understanding and agreement to goals and POC. Thank you for this referral and please call [phone] with any questions or concerns. * Pt will also be receiving OT services. * Clinical Presentation: Stable and/or uncomplicated characteristics. * Level of Complexity: low * Problem List: activity limitations, ADLs/IADLs/self care skills, balance, decreased functional level, decreased knowledge of HEP, fall risk, gait/locomotion, participation restrictions, posture, strength and transfers. [facility] Work Phone: History of Present illness NarrativePatient was identified by name and date. He was able to progress CKC exercises and surface toturf field and blue airex. Required 3 seated rest breaks secondary to fatigue. Verbal and tactile cues to correct form with squats. Instructed in 3 way ankle exercises and given sheet and bands. He will need reinforcement with instruction.[facility] Work Phone: History of Present illness NarrativePatient was identified by name and date. Patient impulsive and needed several verbal cues to slow speed of transfers and exercises. 1 LOB standing up from chair that required mod assist by therapist to correct. He completed all CKC exercises with c/o fatigue only.[facility] Work Phone: History of Present illness NarrativePatient was identified by name and date. noted this session more stability during SLS activities and able to complete increased reps with CKC hip exercises on blue Airex. During HR on airex balance beam he had 3 LOB posterior that required mod assist of therapist. After instructing patient onLOS and how to correct a posterior lean he was able to complete activity with CGA and maintain midline position.[facility] Work Phone: History of Present illness Narrative* Patient was identified by name and date. * SBA-CGA for all activities d/t balance deficits. Focused on gait training this date as pt demos little to no arm swing, poor heel strike, and B knee flex in stance phase upon entry. Pt with LOB laterally x1 which he was able to correct IND with stepping reaction with gait training. Pt tends to lean posteriorly with step ups therefore pt instructed to slow movements and correct with either ankle reaction or stepping reaction. Pt with improved gait mechanics at end of session and instructed to practice heel strike and arm swing while walking this weekend. [facility] Work Phone: History of Present illness Narrative* Pt demos good understanding of HEP. Pt does not demonstrate much change with recheck s/t no follow up visits d/t scheduling conflicts. Pt does demonstrate impairments in BUE strength, FMC, and activity tolerance this date. Would continue to benefit from skilled therapy. pt placed on hold until second week of May * . [facility] Work Phone: History of Present illness NarrativePt reporting some stiffness with hands following fine motor activities this date.[facility] Work Phone: History of Present illness NarrativePt reporting significant fatigue following nuts and bolts. Pt demos need for increased time with copying pattern. Pt resting tremor appears to increase in intensity at end of session. Pt reporting cramping in B hands. [facility] History of Present illness Narrative* Patient was identified by name and date. * Cont with neuro re-ed and ther ex with focus on dual tasking this date- physical and cognitive to improve safety with household duties. He requires CGA- min A for all activities for balance. LOB posteriorly usually therefore continued with neuro re-ed addressing this. Pt does demo decreased balancewith cog tasks. Sitting rest breaks d/t fatigue. [facility] Work Phone: History of Present illness Narrative* Patient was identified by name and date. * Pt with improving strength and balance observed today. VCs to avoid hip ER with lat lunges with good implementation. 1UE support required for lunges. Min A for sport cord activities d/t LOB usually posteriorly and for incline d/t LOB posteriorly and L. Pt with improving ease of arm swing with amb however VCs still required to initiate. [facility] Work Phone: History of Present illness Narrative* Patient was identified by name and date. * Progressed sport cord activities by having pt perform weaving followed by hurdles x2 quickly. Min Clint correct LOB with sport cord activities. Pt demos improving balance and strength today with SBA only for certain activities. Pt with poor control with walking backwards after resisted forward walking. [facility] Work Phone: History of Present illness Narrative* Patient was identified by name and date. * Mr. Aguilar has been attending PT services for symptoms related to PD. Since last recheck he demosimproved balance, gait, and LE strength. Pt with improved ability to catch self from falling posteriorly also. He does still demo some limitations in balance and righting reactions however [place] therefore he was given HEP. He has 2 additional visits left in POC from insurance which he will benefit from using therefore plan to add these before end date to further improve balance and decrease risk of falls. [facility] Work Phone: History of Present illness Narrative* Patient was identified by name and date. * Added multiple strength and balance activities today. LOB x2 max A required- one in posterior direction and one lateral. Pt with improved arm swing when walking around clinic. [facility] Work [facility]: History of Present illness Narrative* Patient was identified by name and date. * Pt able to negotiate stairs 0UE support CGA with no issues. Pt demos good safety throughout session. He does still demo bradykinesia. Attempted TM with focus on arm swing however pt with difficulty keeping balance on TM therefore performed for LE strengthening and focus on LE gait mechanics. Pt required multiple sitting rest breaks d/t fatigue. This is pt's last scheduled appt [place]. He had recheck 07/03/22 that showed significant improvements in balance and strength since beginning PT services. Pt being placed on hold for 30 days. If he does not make contact within this time he will be d/c from skilled PT services per attendance policy. [facility] Work Phone: History of Present illness NarrativePt requires downgrade of task for internal rotation with ROM arc following 3 reps, removed small attachment to complete. Pt demos ability to complete full reps with 4.4lbs. Pt reporting significant fatigue. [facility] Work Phone: History of Present illness NarrativePt demos significant improvements with re-eval this date. 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 Pt reporting things have been much easier for him at home. Pt demos good understand of FMC and UE strength. Pt d/c from therapy at this time. [facility] Work Phone: Reason for visit Narrative* Initial Evaluation . Dx: G20. * Referred by: Elaine Mcgill [facility] Work [facility]: Summary Purpose Family History No Family History Records FoundNo Family History Records FoundNo Family History Records FoundNo Family History Records FoundNo Family History Records FoundNo Family History Records FoundNo Family History Records Found Advance Directives No Advanced Directives Records FoundNo Advanced Directives Records FoundNo Advanced Directives Records FoundNo Advanced Directives Records FoundNo Advanced Directives Records FoundNo Advanced Directives Records FoundNo Advanced Directives Records Found Reason for Referral Specialty Diagnoses / Procedures Referred By Contac t Referred To Contact Diagnoses Parkinson disease (HCC) Procedures PROVIDER ORDERED FOLLOW UP OFFICE/OUTPATIENT NEW HIGH MDM 60-74 MINUTES Elaine Mcgill MD [address] [address] Referral ID Status Reason Start Date Expiration Date Visits Requested Visits Authorized [id number] Authorized PCP Requested Referral 2 05/28/2022 1 1 Specialty Diagnoses / Procedures Referred By Contac t Referred To Contact [facility] Diagnoses Parkinson disease (HCC) Gait instability Procedures CONSULT TO PHYSICAL THERAPY PHYSICAL THERAPY EVALUATION HIGH COMPLEX 45 MINS Elaine Mcgill MD [address] [place] [address] [place] [place] [address] Referral ID Status Reason Start Date Expiration Date Visits Requested Visits Authorized [id number] Pending Review Auto-Generat ed Referral 2 02/27/2023 1 1 Specialty Diagnoses / Procedures Referred By Contac t Referred To Contact Elaine Mcgill MD [address] [address] Referral ID Status Reason Start Date Expiration Date V isits Requested Visits Authorized [id number] Pending Review 1 1 Specialty Diagnoses / Procedures Referred By Contac t Referred To Contact Diagnoses Parkinson's disease without dyskinesia or fluctuating manifestations (HCC) Procedures PROVIDER ORDERED FOLLOW UP OFFICE/OUTPATIENT NEW HIGH MDM 60 MINUTES Elaine Mcgill MD [address] [address] Referral ID Status Reason Start Date Expiration Date Visits Requested Visits Authorized [id number] Authorized PCP Requested Referral 07/09/2023 10/07/2023 1 1 Additional Source Comments (unrecognized sect ion and content) No Status Records FoundNo Status Records FoundNo Status Records FoundNo Status Records FoundNo Status Records FoundNo Status Records FoundNo Status Records Found INFORMATION SOURCE (unrecogn ized section and content) DATE CREATED AUTHOR AUTHOR'S ORGANIZ ATION 10/02/2018 [facility] DATE CREATED AUTHOR AUTHOR'S ORGANIZ ATION 04/18/2019 [facility] DATE CREATED AUTHOR AUTHOR'S ORGANIZ ATION 07/14/2020 [facility] DATE CREATED AUTHOR AUTHOR'S ORGANIZ ATION 07/14/2022 [facility] DATE CREATED AUTHOR AUTHOR'S ORGANIZ ATION 07/15/2022 [facility] DATE CREATED AUTHOR AUTHOR'S ORGANIZ ATION 07/14/2023 [facility] Source Comments (unrecognize d section and content) In the event this informatio n is protected by the Federal Confidentiality of Alcohol and Drug Abuse Patient Records regulations: The Federal rules restrict any use of the information to criminally investigate or prosecute any alcohol or drug abuse patient.[facility] the event this information is protected by the Federal Confidentiality of Alcohol and Drug Abuse Patient Records regulations: The Federal rules restrict any use of the information to criminally investigate or prosecute any alcohol or drug abuse patient.[facility] the event this information is protected by the Federal Confidentiality of Alcohol and Drug Abuse Patient Records regulations: The Federal rules restrict any use of the information to criminally investigate or prosecute any alcohol or drug abuse patient.[facility] the event this information is protected by the Federal Confidentiality of Alcohol and Drug Abuse Patient Records regulations: The Federal rules restrict any use of the information to criminally investigate or prosecute any alcohol or drug abuse patient.[facility] the event this information is protected by the Federal Confidentiality of Alcohol and Drug Abuse Patient Records regulations: The Federal rules restrict any use of the information to criminally investigate or prosecute any alcohol or drug abuse patient.[facility] the event this information is protected by the Federal Confidentiality of Alcohol and Drug Abuse Patient Records regulations: The Federal rules restrict any use of the information to criminally investigate or prosecute any alcohol or drug abuse patient.[facility] the event this information is protected by the Federal Confidentiality of Alcohol and Drug Abuse Patient Records regulations: The Federal rules restrict any use of the information to criminally investigate or prosecute any alcohol or drug abuse patient.[facility] Reason for Visit (unrecogniz ed section and content) Reason Comments Other PT Plan of Care Reason Comments Medication Problem Reason Comments Medication Problem New Medication Reque st Reason Comments Insurance Authorization Reason Comments Follow Up Specialty Diagnoses / Procedures Referred By Contjaneen t Referred To Contact Diagnoses Parkinson disease (HCC) Procedures PROVIDER ORDERED FOLLOW UP OFFICE/OUTPATIENT [facility] 60-74 MINUTES Elaine Mcgill MD [facility] [address] [address] Referral ID Status Reason Start Date Expiration Date V isits Requested Visits Authorized [id number] Closed PCP Requested Referral 01/04/2023 10/04/2023 1 1 Reason Comments Parkinson's Disease Care Teams (unrecognized sec tion and content) Pipe Recovery Specialist Relationship Specialty Start Date End Date Eduardo Tello MD [address] [place] [address] [address] [place] [address] PCP - General Family Medicine 09/17/18 Pipe Recovery Specialist Relationship Specialty Start Date End Date Eduardo Tello MD [address] [facility] [address] [place] [address] PCP - General Family Medicine 09/17/18 Pipe Recovery Specialist Relationship Specialty Start Date End Date Eduardo Tello MD [address] [place] [address] [address] [place] [address] PCP - General Family Medicine 09/17/18 Pipe Recovery Specialist Relationship Specialty Start Date End Date Eduardo Tello MD [address] [facility] [address] [place] [address] PCP - General Family Medicine 09/17/18 Pipe Recovery Specialist Relationship Specialty Start Date End Date Eduardo Tello MD [address] [facility] [address] [place] [address] PCP - General Family Medicine 09/17/18 Pipe Recovery Specialist Relationship Specialty Start Date End Date Eduardo Tello MD [address] [facility] [address] [place] [address] PCP - General Family Medicine 09/17/18 Elaine Mcgill MD [address] [id number] Specialty [employer]on Packaging Machine Operator Neurology 05/02/23 FOR RECORDS PERTAINING TO PATIENTS WHO ARE OR HAVE BEEN ENROLLED IN A CHEMICAL DEPENDENCY/SUBSTANCEABUSE PROGRAM, SOME INFORMATION MAY BE OMITTED. This clinical summary was aggregated from multiple sources. Caution should be exercised in using it in the provision of clinical care. This summary normalizes information from multiple sources, and as a consequence, information in this document may materially change the coding, format and clinical context of patient data. In addition, data may be omitted in some cases. CLINICAL DECISIONS SHOULD BE BASED ON THE PRIMARY CLINICAL RECORDS. [facility] [employer]. provides no warranty or guarantee of the accuracy or completeness of information in this document.
== END | disposition home or self-care (01) ==
LOC: MFPLAB 14:08
PROVIDERS: PCP Family Medicine; Visit Provider Family Medicine
DX: Z12.5 Encounter for screening for malignant neoplasm of prostate (principal); I10 Essential (primary) hypertension
CPT/HCPCS: 36415; 80048; 80061; 84153; G0103

== ENCOUNTER → 2024-01-16 | Outpatient (CLI) | payer MEDICARE, SELFPAY ==
[2024-01-16 18:09] LABS: Anion Gap 5 (5-15); BUN 17 mg/dL (7-18); BUN/Creat Ratio 16.8 RATIO (10-20); Calcium,Total 9.7 mg/dL (8.5-10.1); Chloride 106 mmol/L (98-107); Creatinine, Serum 1.01 mg/dL (0.70-1.30); EST Glomerular Filtration Rate 76 mL/min (>60); Est Glom Filt Rate - Afr Amer 92 mL/min (>60); Glucose 110 mg/dL (74-106); Potassium 3.6 mmol/L (3.5-5.1); Sodium Level 140 mmol/L (136-145)
== END | disposition home or self-care (01) ==
LOC: MFPLAB 14:07
PROVIDERS: PCP Family Medicine; Visit Provider Family Medicine
DX: I10 Essential (primary) hypertension (principal)
CPT/HCPCS: 36415; 80048

== ENCOUNTER → 2024-07-16 | Outpatient (CLI) | payer MEDICARE, SELFPAY ==
[2024-07-16 13:02] LABS: ALB/GLOB Ratio 1.3 RATIO (0.9-2.4); AST(SGOT) 25 U/L (<=37); Alanine Aminotransfer ALT/SGPT 5 U/L (<=46); Albumin, Serum 4.3 g/dL (3.4-4.8); Alkaline Phosphatase 75 U/L (40-129); Anion Gap 12 (5-15); BUN 14 mg/dL (4-19); BUN/Creat Ratio 13.5 RATIO (10-20); Calcium,Total 9.8 mg/dL (7.6-11.0); Carbon Dioxide 26.9 mmol/L (21.0-32.0); Chloride 101 mmol/L (98-108); Cholesterol 137 mg/dL (<=200); EST Glomerular Filtration Rate 77 (>60); Globulin 3.3 g/dL (2.2-4.2); Glucose 150 mg/dL (70-99); High Density Lipoprotein 41 mg/dL; Low Density Lipoprotein Calc. 64 mg/dL; Potassium 3.4 mmol/L (3.3-5.1); Protein, Total 7.6 g/dL (5.9-8.4); Sodium Level 140 mmol/L (133-145); Total Bilirubin 0.75 mg/dL (0.00-1.30); Triglycerides 158 mg/dL; Very Low Density Lipoprotein 32 mg/dL (5-40); cholesterol:hdl ratio screen 3.31
== END | disposition home or self-care (01) ==
LOC: MFPLAB 11:16
PROVIDERS: PCP Family Medicine; Referring Provider Family Medicine; Visit Provider Family Medicine
DX: I10 Essential (primary) hypertension (principal)
CPT/HCPCS: 36415; 80053; 80061

== ENCOUNTER → 2024-10-29 | Outpatient (CLI) | payer MEDICARE, SELFPAY ==
[2024-10-29 16:31] LABS: ALB/GLOB Ratio 1.4 RATIO (0.9-2.4); AST(SGOT) 22 U/L (<=37); Alanine Aminotransfer ALT/SGPT 9 U/L (<=46); Albumin, Serum 4.3 g/dL (3.4-4.8); Alkaline Phosphatase 72 U/L (40-129); Anion Gap 11 (5-15); BUN 13 mg/dL (4-19); Calcium,Total 9.5 mg/dL (7.6-11.0); Carbon Dioxide 25.8 mmol/L (21.0-32.0); Chloride 101 mmol/L (98-108); Cholesterol 144 mg/dL (<=200); Creatinine, Serum 1.02 mg/dL (0.70-1.20); EST Glomerular Filtration Rate 75 (>60); Glucose 143 mg/dL (70-99); High Density Lipoprotein 39 mg/dL; Low Density Lipoprotein Calc. 68 mg/dL; Protein, Total 7.3 g/dL (5.9-8.4); Sodium Level 138 mmol/L (133-145); Total Bilirubin 0.77 mg/dL (0.00-1.30); Triglycerides 186 mg/dL; Very Low Density Lipoprotein 37 mg/dL (5-40)
[2024-10-29 16:36] LABS: Microalbumin,Random Urine < 12.0 mg/L (NO RANGE EST.); Microalbumin:Creatinine Ratio UNABLE TO CALCULATE mg/g CRE
== END | disposition home or self-care (01) ==
LOC: MFPLAB 11:18
PROVIDERS: PCP Family Medicine; Visit Provider Family Medicine
DX: I10 Essential (primary) hypertension (principal)
CPT/HCPCS: 36415; 80053; 80061; 82043; 82570

== ENCOUNTER → 2025-04-22 | Outpatient (CLI) | payer MEDICARE, SELFPAY ==
[2025-04-22 13:05] LABS: Anion Gap 12 (5-15); BUN 15 mg/dL (4-19); BUN/Creat Ratio 14.8 RATIO (10-20); Calcium,Total 9.9 mg/dL (7.6-11.0); Carbon Dioxide 27.3 mmol/L (21.0-32.0); Chloride 100 mmol/L (98-108); Glucose 140 mg/dL (70-99); Potassium 3.4 mmol/L (3.3-5.1)
== END | disposition home or self-care (01) ==
LOC: MFPLAB 10:43
PROVIDERS: PCP Family Medicine; Visit Provider Family Medicine
DX: I10 Essential (primary) hypertension (principal)
CPT/HCPCS: 36415; 80048